=== PATIENT | female | born 1965 | race Caucasian/White ===

== ENCOUNTER → 2016-09-27 | Outpatient (CLI) | payer OTHER ==
--- NOTE | 2016-09-28 09:59 | MR ---
EXAMINATION TYPE: MR brain wo/w con DATE OF EXAM: 09/27/2016 2:35 PM COMPARISON: NONE HISTORY: Headaches and generalized muscular weakness- Multihance 10ml TECHNIQUE: Multiplanar, multisequence images of the brain and brainstem is performed without and with IV contras t, utilizing 10 mL intravenous MultiHance . FINDINGS: Diffusion weighted images demonstrate no evidence of a recent infarct or other diffusion ab normality. There is no extra-axial fluid collection present. The ventricular system and cisternal s paces are normal in size and appearance. The brain volume is age appropriate. Few foci of left hemis pheric and right frontal T2/IR hyperintensity without restricted diffusion or enhancement are seen wi thin the subcortical white matter. Midline structures demonstrate normal morphology. The craniocervical junction appears within normal limits. Post contrast images demonstrate no abnormal enhancement. The dural venous sinuses appear pa tent. Intracranial flow voids are intact. There is circumferential mucosal thickening of the right ma xillary sinus. The remaining visualized sinuses are clear and the globes are intact. IMPRESSION: 1. No evidence of acute territorial infarct, intracranial hemorrhage mass effect, or midline shift. 2. Few nonspecific T2 hyperintense subcortical foci, likely on the basis of chronic microangiopathy, however some are located within the frontal lobes and could relate to migraines and a patient with a given history of headaches. There is no evidence of restricted diffusion are enhancement of these foc i. 2. Circumferential right maxillary paranasal sinus disease.
--- NOTE | 2016-09-28 10:03 | MR ---
EXAMINATION TYPE: MR angio head wo con DATE OF EXAM: 09/27/2016 2:27 PM COMPARISON: NONE HISTORY: Headaches CONTRAST: None TECHNIQUE: Multiplanar multiecho imaging on a 3.0 Nai magnet is performed through the [place]. 3-D [id number] imaging is performed. Source images are reviewed on the computer in the axi al plane. Reconstructed images rotating on the computer are reviewed. FINDINGS: The internal carotid arteries bifurcate normally into A1 and M1 segments. The A2 segments are normal. Middle cerebral artery branches are normal. Anterior communicating artery is patent. This may be small. The right posterior communicating artery is patent. The left posterior communicating artery is absent. Vertebrobasilar arteries within the [id number]-[id number] are normal. Posterior cerebral vasculature is norm al. No suspicious aneurysm or aneurysmal dilatation is evident. No obstructions are identified. No significant flow-limiting stenosis is evident. IMPRESSIONS: 1. NORMAL MRA [facility] [place].
== END | disposition home or self-care (01) ==
LOC: RADMRIMAIN 13:21
PROVIDERS: ATTEND Psychiatry & Neurology Neurology
DX: R51 Headache (principal); R20.0 Anesthesia of skin; M62.81 Muscle weakness (generalized)
CPT/HCPCS: 70544; 70553; A9577

== ENCOUNTER 2017-07-04 13:58 | Emergency (ER) | payer OTHER ==
--- NOTE | 2017-07-04 15:03 | ED ---
Dizziness HPI - General Chief Complaint: Dizziness Stated Complaint: Double Vision Time Seen by Provider: 07/04/17 14:10 Source: patient, family, RN notes reviewed, old records reviewed Mode of arrival: EMS Limitations: no limitations - History of Present Illness Initial Comments: 52 female with history of CAD, and epilepsy presents with chief complaint of lightheadedness and double vision. Patient states that around noon today she felt she was going to pass out. Denies any vertigo symptoms. Patient states at that time she had some vertical double vision. She states she has had lightheadedness and double vision orany. Patient's primary care physician and her neurologist are aware of these symptoms. Patient had recent hospitalization approximately 2 months ago, was found to have CAD and received a RCA stent. Patient has been taking metoprolol, pravastatin, and Plavix. Denies missing any doses. Patient is also on carbamazepine and Ativan for her epilepsy. Patient has a absent seizures. Patient denies chest pain or shortness of breath. Denies abdominal pain. Denies fever chills. States her normal vision and lightheadedness have resolved. - Related Data Home Medications Medication Instructions Recorded Confirmed Atorvastatin [Lipitor] 40 mg PO HS 07/04/17 07/04/17 Bacavir/Lamivudine/Zido 1 tab PO BID 07/04/17 07/04/17 Clopidogrel [Plavix] 75 mg PO DAILY@1400 07/04/17 07/04/17 LORazepam [Ativan] 1 mg PO QID 07/04/17 07/04/17 Metoprolol Tartrate [Lopressor] 25 mg PO DAILY 07/04/17 07/04/17 Sertraline [Zoloft] 25 mg PO DAILY 07/04/17 07/04/17 carBAMazepine [TEGretol] 200 mg PO 5XD 07/04/17 07/04/17 lamoTRIgine [LaMICtal] 25 mg PO DAILY 07/04/17 07/04/17 lamoTRIgine [LaMICtal] 100 mg PO BID 07/04/17 07/04/17 Allergies Allergy/AdvReac Type Severity Reaction Status Date / Time phenobarbital AdvReac "ZOMBIE" Verified 07/04/17 15:29 PER FAMILY Review of Systems ROS Statement: Those systems with pertinent positive or pertinent negative responses have been documented in the HPI. ROS Other: All systems not noted in ROS Statement are negative. Past Medical History Additional Past Medical History / Comment(s): pt poor historian: hiv+, hep C, acities History of Any Multi-Drug Resistant Organisms: None Reported Additional Past Surgical History / Comment(s): pt poor historian Past Psychological History: No Psychological Hx Reported Smoking Status: Never smoker Past Alcohol Use History: None Reported Past Drug Use History: None Reported General Exam Limitations: no limitations General appearance: alert, in no apparent distress Head exam: Present: atraumatic, normocephalic Eye exam: Present: normal appearance, PERRL, EOMI. Absent: scleral icterus, nystagmus ENT exam: Present: normal exam Neck exam: Present: normal inspection. Absent: tenderness, meningismus Respiratory exam: Present: normal lung sounds bilaterally. Absent: respiratory distress Cardiovascular Exam: Present: regular rate, normal rhythm GI/Abdominal exam: Present: soft. Absent: distended Extremities exam: Present: normal inspection, full ROM, normal capillary refill. Absent: pedal edema, calf tenderness Neurological exam: Present: alert, oriented X3, CN II-XII intact. Absent: motor sensory deficit Psychiatric exam: Present: normal affect, normal mood Skin exam: Present: warm, dry, intact. Absent: cyanosis, diaphoretic Course Vital Signs 07/04/17 07/04/17 14:06 15:00 Temperature 96.8 F L Pulse Rate 75 72 Respiratory 18 20 Rate Blood Pressure 188/92 140/86 O2 Sat by Pulse 100 97 Oximetry EKG Findings - EKG Comments: EKG Findings:: EKG shows normal sinus rhythm, left atrial enlargement, ventricular rate 78, IN of 150, QRS duration 88, QTC 467, no signs of ischemia Medical Decision Making - Medical Decision Making 52-year-old female presenting with near syncope and double vision. The symptoms have been ongoing for months to years. No chest pain shortness of breath. EKG is nonischemic. Chest x-ray shows no acute intrathoracic processes. CT of the brain does show advanced atrophy according to the patient' s age, no intracranial hemorrhage, no mass effect. Laboratory studies reveal normal white blood cell count 4.3, stable hemoglobin 14.2 although she has significant macrocytosis. Sodium 135. I otherwise normal. Patient is encouraged to take a B complex for her macrocytic anemia. She is not currently driving. 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 Diagnosis: Near-syncope, double vision-resolved. Macrocytic anemia - Lab Data Result diagrams: 07/04/17 14:05 07/04/17 14:05 Lab Results 07/04/17 07/04/17 07/04/17 Range/Units 14:05 14:05 14:05 WBC 4.3 (3.8-10.6) k/uL RBC 3.23 L (3.80-5.40) m/uL Hgb 13.2 (11.4-16.0) gm/dL Hct 41.3 (34.0-46.0) % MCV 127.6 H (80.0-100.0) fL MCH 40.7 H (25.0-35.0) pg MCHC 31.9 (31.0-37.0) g/dL RDW 13.3 (11.5-15.5) % Plt Count 284 (150-450) k/uL Neutrophils % (Manual) 27 % Lymphocytes % (Manual) 64 % Monocytes % (Manual) 6 % Eosinophils % (Manual) 3 % Neutrophils # (Manual) 1.16 L (1.3-7.7) k/uL Lymphocytes # (Manual) 2.75 (1.0-4.8) k/uL Monocytes # (Manual) 0.26 (0-1.0) k/uL Eosinophils # (Manual) 0.13 (0-0.7) k/uL Nucleated RBCs 0 (0-0) /100 WBC Manual Slide Review Performed Reactive Lymphocytes Present Macrocytosis Marked Sodium 135 L (137-145) mmol/L Potassium 4.2 (3.5-5.1) mmol/L Chloride 102 (98-107) mmol/L Carbon Dioxide 23 (22-30) mmol/L Anion Gap 10 mmol/L BUN 12 (7-17) mg/dL Creatinine 0.60 (0.52-1.04) mg/dL Est GFR (MDRD) Af Amer >60 (>60 ml/min/1.73 sqM) Est GFR (MDRD) Non-Af >60 (>60 ml/min/1.73 sqM) Glucose 89 (74-99) mg/dL Plasma Lactic Acid Ari (0.7-2.0) mmol/L Calcium 9.4 (8.4-10.2) mg/dL Total Bilirubin 0.2 (0.2-1.3) mg/dL AST 33 (14-36) U/L ALT 37 (9-52) U/L Alkaline Phosphatase 106 (38-126) U/L Total Protein 6.8 (6.3-8.2) g/dL Albumin 4.4 (3.5-5.0) g/dL Urine Color Light Yellow Urine Appearance Clear (Clear) Urine pH 6.0 (5.0-8.0) Ur Specific [place] 1.004 (1.001-1.035) Urine Protein Negative (Negative) Urine Glucose (UA) Negative (Negative) Urine Ketones Negative (Negative) Urine Blood Negative (Negative) Urine Nitrite Negative (Negative) Urine Bilirubin Negative (Negative) Urine Urobilinogen <2.0 (<2.0) mg/dL Ur Leukocyte Esterase Negative (Negative) Urine Opiates Screen Not Detected (NotDetected) Ur Oxycodone Screen Not Detected (NotDetected) Urine Methadone Screen Not Detected (NotDetected) Ur Propoxyphene Screen Not Detected (NotDetected) Ur Barbiturates Screen Not Detected (NotDetected) U Tricyclic Antidepress Not Detected (NotDetected) Ur Phencyclidine Scrn Not Detected (NotDetected) Ur Amphetamines Screen Not Detected (NotDetected) U Methamphetamines Scrn Not Detected (NotDetected) U Benzodiazepines Scrn Detected H (NotDetected) Urine Cocaine Screen Not Detected (NotDetected) U Marijuana (THC) Screen Not Detected (NotDetected) 07/04/17 Range/Units 14:05 WBC (3.8-10.6) k/uL RBC (3.80-5.40) m/uL Hgb (11.4-16.0) gm/dL Hct (34.0-46.0) % MCV (80.0-100.0) fL MCH (25.0-35.0) pg MCHC (31.0-37.0) g/dL RDW (11.5-15.5) % Plt Count (150-450) k/uL Neutrophils % (Manual) % Lymphocytes % (Manual) % Monocytes % (Manual) % Eosinophils % (Manual) % Neutrophils # (Manual) (1.3-7.7) k/uL Lymphocytes # (Manual) (1.0-4.8) k/uL Monocytes # (Manual) (0-1.0) k/uL Eosinophils # (Manual) (0-0.7) k/uL Nucleated RBCs (0-0) /100 WBC Manual Slide Review Reactive Lymphocytes Macrocytosis Sodium (137-145) mmol/L Potassium (3.5-5.1) mmol/L Chloride (98-107) mmol/L Carbon Dioxide (22-30) mmol/L Anion Gap mmol/L BUN (7-17) mg/dL Creatinine (0.52-1.04) mg/dL Est GFR (MDRD) Af Amer (>60 ml/min/1.73 sqM) Est GFR (MDRD) Non-Af (>60 ml/min/1.73 sqM) Glucose (74-99) mg/dL Plasma Lactic Acid Ari 1.1 (0.7-2.0) mmol/L Calcium (8.4-10.2) mg/dL Total Bilirubin (0.2-1.3) mg/dL AST (14-36) U/L ALT (9-52) U/L Alkaline Phosphatase (38-126) U/L Total Protein (6.3-8.2) g/dL Albumin (3.5-5.0) g/dL Urine Color Urine Appearance (Clear) Urine pH (5.0-8.0) Ur Specific [place] (1.001-1.035) Urine Protein (Negative) Urine Glucose (UA) (Negative) Urine Ketones (Negative) Urine Blood (Negative) Urine Nitrite (Negative) Urine Bilirubin (Negative) Urine Urobilinogen (<2.0) mg/dL Ur Leukocyte Esterase (Negative) Urine Opiates Screen (NotDetected) Ur Oxycodone Screen (NotDetected) Urine Methadone Screen (NotDetected) Ur Propoxyphene Screen (NotDetected) Ur Barbiturates Screen (NotDetected) U Tricyclic Antidepress (NotDetected) Ur Phencyclidine Scrn (NotDetected) Ur Amphetamines Screen (NotDetected) U Methamphetamines Scrn (NotDetected) U Benzodiazepines Scrn (NotDetected) Urine Cocaine Screen (NotDetected) U Marijuana (THC) Screen (NotDetected) Disposition Clinical Impression: Near syncope, Macrocytic anemia Disposition: HOME SELF-CARE Condition: Good Instructions: Near Syncope (ED) Referrals: Grant Frederick MD [Primary Care Provider] - 1-2 days Antelmo Mulligan MD [STAFF PHYSICIAN] - 1-2 days Antonia Roberts MD [STAFF PHYSICIAN] - 1-2 days Time of Disposition: 17:05
[2017-07-04 15:16] LABS: Appearance,Urine Clear (Clear); Bilirubin,Urine Negative (Negative); Glucose,Urine (UA) Negative (Negative); Ketones,Urine Negative (Negative); Leukocyte Esterase,Urine Negative (Negative); Nitrite,Urine Negative (Negative); Protein,Urine Negative (Negative); Specific Gravity,Urine 1.004 (1.001-1.035); UA Billing (MACRO vs. MICRO) CHEM; Urobilinogen,Urine <2.0 mg/dL (<2.0)
[2017-07-04 15:17] LABS: CH 40.6; HCT 41.3 % (34.0-46.0); HDW 2.08; HGB 13.2 gm/dL (11.4-16.0); MCH 40.7 pg (25.0-35.0); MCHC 31.9 g/dL (31.0-37.0); MCV 127.6 fL (80.0-100.0); Macrocytosis Marked; Mean Platelet Volume 7.3; RBC 3.23 m/uL (3.80-5.40); RDW 13.3 % (11.5-15.5); WBC 4.3 k/uL (3.8-10.6); WBC (Perox) 4.23
--- NOTE | 2017-07-04 15:33 | CT ---
EXAMINATION TYPE: CT brain wo con DATE OF EXAM: 07/04/2017 COMPARISON: NONE HISTORY: Patient complains of dizziness, double vision, and near syncope after taking her daily medic ations. CT DLP: 619.7 mGycm. Automated Exposure Control for Dose Reduction was Utilized. TECHNIQUE: CT scan of the head is performed without contrast. FINDINGS: There is no acute intracranial hemorrhage, mass effect, or midline shift identified. The ventricles and sulci are within normal limits in size. The globes are intact and the visualized sin uses are clear. Waelder artifact from dense calvarium somewhat limits evaluation of the ro and brains tem. Symmetric prominence of the peripheral sulci and ventricular system relate to age-related atroph y, slightly prominent for the patient's age. IMPRESSION: 1. No acute intracranial hemorrhage, mass effect, or midline shift is seen. 2. Cerebral atrophy that is slightly prominent for the patient's age.
[2017-07-04 15:37] LABS: Add Differential Manual Differential
--- NOTE | 2017-07-04 15:38 | XR ---
EXAMINATION TYPE: XR chest 2V DATE OF EXAM: 07/04/2017 COMPARISON: NONE HISTORY: Syncope TECHNIQUE: Frontal and lateral views of the chest are obtained. FINDINGS: There is no focal air space opacity, pleural effusion, or pneumothorax seen. Pulmonary hyp erinflation may relate to degree of inspiration or underlying COPD as there is no distinct flattening the diaphragms on the lateral image or biapical lucency. The cardiac silhouette size is within norm al limits. The osseous structures are intact. IMPRESSION: No acute cardiopulmonary process.
[2017-07-04 15:42] LABS: Manual Review Performed; Nucleated Red Blood Cells 0 /100 WBC (0-0); Reactive Lymphocytes Present; Total Cells Counted 100
[2017-07-04 15:50] LABS: ALT 37 U/L (9-52); AST 33 U/L (14-36); Alkaline Phosphatase 106 U/L (38-126); Anion Gap 10 mmol/L; Blood Urea Nitrogen 12 mg/dL (7-17); Calcium 9.4 mg/dL (8.4-10.2); Carbon Dioxide 23 mmol/L (22-30); Chloride 102 mmol/L (98-107); Glucose 89 mg/dL (74-99); Non-African American GFR(MDRD) >60 (>60 ml/min/1.73 sqM); Potassium 4.2 mmol/L (3.5-5.1); Sodium 135 mmol/L (137-145); Total Bilirubin 0.2 mg/dL (0.2-1.3); Total Protein 6.8 g/dL (6.3-8.2)
[2017-07-04 17:19] VITALS: BP 144/88; PULSE 78; RESP 18; TEMP 98.1
== END 2017-07-04 17:19 | disposition home or self-care (01) ==
LOC: EC 13:58
DX: R55 Syncope and collapse (principal); D53.9 Nutritional anemia, unspecified; I25.10 Atherosclerotic heart disease of native coronary artery without angina pectoris; Z21 Asymptomatic human immunodeficiency virus [HIV] infection status; Z86.69 Personal history of other diseases of the nervous system and sense organs; Z79.02 Long term (current) use of antithrombotics/antiplatelets; Z79.899 Other long term (current) drug therapy; Z88.8 Allergy status to other drugs, medicaments and biological substances
CPT/HCPCS: 36415; 70450; 71020; 80053; 80306; 81003; 83605; 85025; 93005; 99285

== ENCOUNTER 2018-08-22 03:30 | Inpatient (IN) | payer OTHER ==
--- NOTE | 2018-08-22 03:33 | ED ---
General Adult HPI - General Stated complaint: poss allergic reaction Time Seen by Provider: 08/22/18 03:32 - History of Present Illness Initial comments: Luiza is a 53-year-old female with a history of hep C and HIV who presents to the emergency department today for evaluation of agitation. reports patient was in her usual state of health until yesterday, he reports that throughout the day she has been agitated and not acting like herself. This evening he couldn't get her to take her home medications which she is usually very vigilant about. He reports that she continued to say on an atypical things like that she believes she had a heart attack that her ears and mouth were hurting, that she felt something happen when she was going to the bathroom that told her that she had had a heart attack. could not console the patient so he contacted EMS to bring the patient to the hospital. reports that the patient is absolutely compliant with all of her medications. She has an undetectable viral load with her HIV. She has no complications of her hepatitis that he is aware of. He reports that the only other abnormality he noticed throughout the day as she was drinking water and seemed to have insatiable thirst. Upon arrival patient is acutely agitated, she is stating that she knows she has had a heart attack. She reports that she can't move because she is . She denies any pain but offers no meaningful history. - Related Data Home Medications Medication Instructions Recorded Confirmed Atorvastatin [Lipitor] 40 mg PO HS 07/04/17 07/04/17 Bacavir/Lamivudine/Zido 1 tab PO BID 07/04/17 07/04/17 Clopidogrel [Plavix] 75 mg PO DAILY@1400 07/04/17 07/04/17 LORazepam [Ativan] 1 mg PO QID 07/04/17 07/04/17 Metoprolol Tartrate [Lopressor] 25 mg PO DAILY 07/04/17 07/04/17 Sertraline [Zoloft] 25 mg PO DAILY 07/04/17 07/04/17 carBAMazepine [TEGretol] 200 mg PO 5XD 07/04/17 07/04/17 lamoTRIgine [LaMICtal] 25 mg PO DAILY 07/04/17 07/04/17 lamoTRIgine [LaMICtal] 100 mg PO BID 07/04/17 07/04/17 Allergies Allergy/AdvReac Type Severity Reaction Status Date / Time phenobarbital AdvReac "ZOMBIE" Verified 08/22/18 03:43 PER FAMILY Review of Systems ROS Statement: Those systems with pertinent positive or pertinent negative responses have been documented in the HPI. ROS Other: All systems not noted in ROS Statement are negative. Limitations: ROS unobtainable due to patients medical condition (Altered mental status) Past Medical History Additional Past Medical History / Comment(s): pt poor historian: hiv+, hep C, acities History of Any Multi-Drug Resistant Organisms: None Reported Additional Past Surgical History / Comment(s): pt poor historian Past Psychological History: No Psychological Hx Reported Smoking Status: Never smoker Past Alcohol Use History: None Reported Past Drug Use History: None Reported General Exam - General Exam Comments Initial Comments: GENERAL: Patient appears much older than stated age HENT: Normocephalic, Atraumatic. Neck is soft and supple. No significant lymphadenopathy is noted. Oropharynx is clear. Moist mucous membranes. Neck has full range of motion without eliciting any pain. TMs normal bilaterally external ear and ear canals normal bilaterally EYES: The sclera were anicteric and conjunctiva were pink and moist. Extraocular movements were intact and pupils were equal round and reactive to light. Eyelids were unremarkable. PULMONARY: Unlabored respirations. Good breath sounds bilaterally. No audible rales rhonchi or wheezing was noted. CARDIOVASCULAR: There is a regular rate and rhythm without any murmurs gallops or rubs. ABDOMEN: Soft and nontender with normal bowel sounds. SKIN: Skin is clear with no lesions or rashes and otherwise unremarkable. NEUROLOGIC: Patient is alert and oriented to self only Patient is able to identify that she is in a hospital MUSCULOSKELETAL: Normal extremities with adequate strength and full range of motion. No lower extremity swelling or edema. No calf tenderness. LYMPHATICS: No significant lymphadenopathy is noted PSYCHIATRIC: Very odd and paranoid Limitations: no limitations Course Vital Signs 08/22/18 08/22/18 08/22/18 03:35 05:40 06:46 Temperature 98.1 F Pulse Rate 82 77 98 Respiratory 20 20 16 Rate Blood Pressure 186/112 134/75 146/87 O2 Sat by Pulse 99 99 100 Oximetry - Reevaluation(s) Reevaluation #1: She was reevaluated. She was resting comfortably however when she wakes she continues to complain that she's not feeling well and complains that she possibly has to urinate. I updated the patient and on elevated troponin and plan for heparinization and cardiology evaluation. Does report the patient had a stent placed approximately one year ago in a clean cath afterwards. 08/22/18 06:25 EKG Findings - EKG Comments: EKG Findings:: KG obtained at 3:46 AM, rate is 73 rhythm is sinus there is normal axis normal intervals no acute ST elevations or depressions no evidence of acute ischemia or infarction. Repeat EKG obtained at 6:25 AM, rate is 95 rhythm is sinus there is a first-degree AV block with a VA of 216. QRS 82, QTc is 475. There are no acute ST elevations or evidence of acute infarction. Medical Decision Making - Medical Decision Making Patient was seen and evaluated upon arrival patient with a history of hep C and HIV which is well-controlled on oral meds with an undetectable viral load Patient presenting acutely agitated Labs and imaging were ordered was witnessed to have seizure-like activity with an twitching movement of her face as well as repetitive motion of her right arm. Patient was incontinent of urine at this time. IV Ativan was ordered and given. Patient was much calmer after Ativan, we are able to transported to computed tomography scan, CT of the head was negative for acute pathology Unfortunately a lot of her labs clotted and had to be redrawn resulting in somewhat delayed CBC unremarkable CMP resulted with mild hyponatremia, hypokalemia, normal lactic acid, mildly elevated CPK Troponin was elevated at 1.6 5 repeat EKG was obtained which again appears nonischemic Patient care was discussed with Dr. guthrie, patient will be admitted on heparin for an STEMI with a consult to cardiology as well as consult to neurology Patient care was discussed with Dr. Juares, cardiology division supervisor who is aware of the elevated trop and agrees with Heparin and admission - Lab Data Result diagrams: 08/22/18 03:55 08/22/18 05:15 Lab Results 08/22/18 08/22/18 08/22/18 Range/Units 03:55 03:55 03:55 WBC 8.6 (3.8-10.6) k/uL RBC 3.04 L (3.80-5.40) m/uL Hgb 12.4 (11.4-16.0) gm/dL Hct 36.4 (34.0-46.0) % MCV 119.8 H (80.0-100.0) fL MCH 40.8 H (25.0-35.0) pg MCHC 34.0 (31.0-37.0) g/dL RDW 12.7 (11.5-15.5) % Plt Count 229 (150-450) k/uL Neutrophils % 70 % Lymphocytes % 20 % Monocytes % 7 % Eosinophils % 1 % Basophils % 0 % Neutrophils # 6.0 (1.3-7.7) k/uL Lymphocytes # 1.8 (1.0-4.8) k/uL Monocytes # 0.6 (0-1.0) k/uL Eosinophils # 0.1 (0-0.7) k/uL Basophils # 0.0 (0-0.2) k/uL Manual Slide Review Performed Macrocytosis Marked PT (9.0-12.0) sec INR (<1.2) APTT (22.0-30.0) sec Sodium (137-145) mmol/L Potassium (3.5-5.1) mmol/L Chloride (98-107) mmol/L Carbon Dioxide (22-30) mmol/L Anion Gap mmol/L BUN (7-17) mg/dL Creatinine (0.52-1.04) mg/dL Est GFR (CKD-EPI)AfAm (>60 ml/min/1.73 sqM) Est GFR (CKD-EPI)NonAf (>60 ml/min/1.73 sqM) Glucose (74-99) mg/dL Plasma Lactic Acid Ari 1.3 (0.7-2.0) mmol/L Calcium (8.4-10.2) mg/dL Total Bilirubin (0.2-1.3) mg/dL AST (14-36) U/L ALT (9-52) U/L Alkaline Phosphatase (38-126) U/L Total Creatine Kinase (30-135) U/L CK-MB (CK-2) (0.0-2.4) ng/mL CK-MB (CK-2) Rel Index Troponin I (0.000-0.034) ng/mL Total Protein (6.3-8.2) g/dL Albumin (3.5-5.0) g/dL Urine Color Urine Appearance (Clear) Urine pH (5.0-8.0) Ur Specific [place] (1.001-1.035) Urine Protein (Negative) Urine Glucose (UA) (Negative) Urine Ketones (Negative) Urine Blood (Negative) Urine Nitrite (Negative) Urine Bilirubin (Negative) Urine Urobilinogen (<2.0) mg/dL Ur Leukocyte Esterase (Negative) Influenza Type A RNA Not Detected (Not Detectd) Influenza Type B (PCR) Not Detected (Not Detectd) 08/22/18 08/22/18 08/22/18 Range/Units 04:15 05:10 05:10 WBC (3.8-10.6) k/uL RBC (3.80-5.40) m/uL Hgb (11.4-16.0) gm/dL Hct (34.0-46.0) % MCV (80.0-100.0) fL MCH (25.0-35.0) pg MCHC (31.0-37.0) g/dL RDW (11.5-15.5) % Plt Count (150-450) k/uL Neutrophils % % Lymphocytes % % Monocytes % % Eosinophils % % Basophils % % Neutrophils # (1.3-7.7) k/uL Lymphocytes # (1.0-4.8) k/uL Monocytes # (0-1.0) k/uL Eosinophils # (0-0.7) k/uL Basophils # (0-0.2) k/uL Manual Slide Review Macrocytosis PT 10.9 (9.0-12.0) sec INR 1.0 (<1.2) APTT 23.7 (22.0-30.0) sec Sodium (137-145) mmol/L Potassium (3.5-5.1) mmol/L Chloride (98-107) mmol/L Carbon Dioxide (22-30) mmol/L Anion Gap mmol/L BUN (7-17) mg/dL Creatinine (0.52-1.04) mg/dL Est GFR (CKD-EPI)AfAm (>60 ml/min/1.73 sqM) Est GFR (CKD-EPI)NonAf (>60 ml/min/1.73 sqM) Glucose (74-99) mg/dL Plasma Lactic Acid Ari (0.7-2.0) mmol/L Calcium (8.4-10.2) mg/dL Total Bilirubin (0.2-1.3) mg/dL AST (14-36) U/L ALT (9-52) U/L Alkaline Phosphatase (38-126) U/L Total Creatine Kinase 212 H (30-135) U/L CK-MB (CK-2) 4.8 H (0.0-2.4) ng/mL CK-MB (CK-2) Rel Index 2.3 Troponin I 1.650 H* (0.000-0.034) ng/mL Total Protein (6.3-8.2) g/dL Albumin (3.5-5.0) g/dL Urine Color Colorless Urine Appearance Clear (Clear) Urine pH 7.5 (5.0-8.0) Ur Specific [place] 1.001 (1.001-1.035) Urine Protein Negative (Negative) Urine Glucose (UA) Negative (Negative) Urine Ketones Negative (Negative) Urine Blood Negative (Negative) Urine Nitrite Negative (Negative) Urine Bilirubin Negative (Negative) Urine Urobilinogen <2.0 (<2.0) mg/dL Ur Leukocyte Esterase Negative (Negative) Influenza Type A RNA (Not Detectd) Influenza Type B (PCR) (Not Detectd) 08/22/18 Range/Units 05:15 WBC (3.8-10.6) k/uL RBC (3.80-5.40) m/uL Hgb (11.4-16.0) gm/dL Hct (34.0-46.0) % MCV (80.0-100.0) fL MCH (25.0-35.0) pg MCHC (31.0-37.0) g/dL RDW (11.5-15.5) % Plt Count (150-450) k/uL Neutrophils % % Lymphocytes % % Monocytes % % Eosinophils % % Basophils % % Neutrophils # (1.3-7.7) k/uL Lymphocytes # (1.0-4.8) k/uL Monocytes # (0-1.0) k/uL Eosinophils # (0-0.7) k/uL Basophils # (0-0.2) k/uL Manual Slide Review Macrocytosis PT (9.0-12.0) sec INR (<1.2) APTT (22.0-30.0) sec Sodium 128 L (137-145) mmol/L Potassium 3.4 L (3.5-5.1) mmol/L Chloride 98 (98-107) mmol/L Carbon Dioxide 21 L (22-30) mmol/L Anion Gap 9 mmol/L BUN 8 (7-17) mg/dL Creatinine 0.47 L (0.52-1.04) mg/dL Est GFR (CKD-EPI)AfAm >90 (>60 ml/min/1.73 sqM) Est GFR (CKD-EPI)NonAf >90 (>60 ml/min/1.73 sqM) Glucose 101 H (74-99) mg/dL Plasma Lactic Acid Ari (0.7-2.0) mmol/L Calcium 8.6 (8.4-10.2) mg/dL Total Bilirubin 0.6 (0.2-1.3) mg/dL AST 41 H (14-36) U/L ALT 37 (9-52) U/L Alkaline Phosphatase 58 (38-126) U/L Total Creatine Kinase (30-135) U/L CK-MB (CK-2) (0.0-2.4) ng/mL CK-MB (CK-2) Rel Index Troponin I (0.000-0.034) ng/mL Total Protein 5.9 L (6.3-8.2) g/dL Albumin 3.6 (3.5-5.0) g/dL Urine Color Urine Appearance (Clear) Urine pH (5.0-8.0) Ur Specific [place] (1.001-1.035) Urine Protein (Negative) Urine Glucose (UA) (Negative) Urine Ketones (Negative) Urine Blood (Negative) Urine Nitrite (Negative) Urine Bilirubin (Negative) Urine Urobilinogen (<2.0) mg/dL Ur Leukocyte Esterase (Negative) Influenza Type A RNA (Not Detectd) Influenza Type B (PCR) (Not Detectd) Critical Care Time Critical Care Time: Yes Total Critical Care Time: 35 Critical Care Time: Critical Care Critical care time was exclusive of separately billable procedures and treating other patients and teaching time. Critical care was necessary to treat or prevent imminent or life-threatening deterioration. Critical care was time spent personally by me on the following activities: development of treatment plan with patient or surrogate, discussions with consultants, discussions with primary provider, evaluation of patient's response to treatment, examination of patient, obtaining history from patient or surrogate, ordering and performing treatments and interventions, ordering and review of laboratory studies, ordering and review of radiographic studies, pulse oximetry, re-evaluation of patient's condition and review of old charts. Disposition Clinical Impression: NSTEMI (non-ST elevated myocardial infarction), Seizure, HIV disease, Hepatitis C, Agitation Disposition: ADMITTED IP TO THIS [facility] Condition: Serious Is patient prescribed a controlled substance at d/c from ED?: No
[2018-08-22] MEDS ORDERED: LORazepam 2 MG/ML INJ IV STA ×2 (04:14→04:22)
[2018-08-22] MEDS: SODIUM CHLORIDE 0.9% 500 ML 500 ML IV SCH ×2 (04:16→04:17)
[2018-08-22 04:26] LABS: Appearance,Urine Clear (Clear); Bilirubin,Urine Negative (Negative); Blood,Urine Negative (Negative); Color,Urine Colorless; Glucose,Urine (UA) Negative (Negative); Ketones,Urine Negative (Negative); Leukocyte Esterase,Urine Negative (Negative); Nitrite,Urine Negative (Negative); PH, Urine 7.5 (5.0-8.0); Protein,Urine Negative (Negative); Specific Gravity,Urine 1.001 (1.001-1.035); Urobilinogen,Urine <2.0 mg/dL (<2.0)
[2018-08-22 04:28] LABS: Basophils % (A) 0 %; Eosinophils # (A) 0.1 k/uL (0-0.7); Eosinophils % (A) 1 %; HCT 36.4 % (34.0-46.0); HGB 12.4 gm/dL (11.4-16.0); Lymphocytes # (A) 1.8 k/uL (1.0-4.8); Lymphocytes % (A) 20 %; MCH 40.8 pg (25.0-35.0); MCV 119.8 fL (80.0-100.0); Macrocytosis Marked; Mean Platelet Volume 6.9; Monocytes # (A) 0.6 k/uL (0-1.0); Monocytes % (A) 7 %; Neutrophils % (A) 70 %; Platelet Count 229 k/uL (150-450); RBC 3.04 m/uL (3.80-5.40); RDW 12.7 % (11.5-15.5); WBC 8.6 k/uL (3.8-10.6)
--- NOTE | 2018-08-22 05:03 | CT ---
EXAM: CT Head Without Intravenous Contrast CLINICAL HISTORY: Altered, hx HIV. TECHNIQUE: Axial computed tomography images of the head/brain without intravenous contrast. Coronal and sagittal reformations provided. CTDI is 49.3 mGy and DLP is 1081.4 mGy-cm. This CT exam was performed using one or more of the following dose reduction techniques: automated exposure control, adjustment of the mA and/or kV according to patient size, and/or use of iterative reconstruction technique. COMPARISON: No relevant prior studies available. FINDINGS: Brain: No acute intracranial hemorrhage. No evidence of acute infarct. No significant white matter disease. No edema. No mass effect or midline shift. Stable mild atrophy/volume loss. Ventricles: Unremarkable. No ventriculomegaly. Bones/joints: Unremarkable. No acute fracture. Soft tissues: Unremarkable. Sinuses: Unremarkable as visualized. No acute sinusitis. Mastoid air cells: Unremarkable as visualized. No mastoid effusion. IMPRESSION: 1. No evidence of acute intracranial abnormality. 2. Stable mild cerebral volume loss.
[2018-08-22 05:51] LABS: ALT 37 U/L (9-52); AST 41 U/L (14-36); Albumin 3.6 g/dL (3.5-5.0); Alkaline Phosphatase 58 U/L (38-126); Anion Gap 9 mmol/L; Blood Urea Nitrogen 8 mg/dL (7-17); Calcium 8.6 mg/dL (8.4-10.2); Carbon Dioxide 21 mmol/L (22-30); Chloride 98 mmol/L (98-107); Glucose 101 mg/dL (74-99); Potassium 3.4 mmol/L (3.5-5.1); Sodium 128 mmol/L (137-145); Total Bilirubin 0.6 mg/dL (0.2-1.3); Total Protein 5.9 g/dL (6.3-8.2)
[2018-08-22 05:57] LABS: Partial Thromboplastin Time 23.7 sec (22.0-30.0); Prothrombin Time 10.9 sec (9.0-12.0)
[2018-08-22] MEDS ORDERED: NALOXONE 0.4 MG/ML 1 ML VIAL IV PRN (06:06)
[2018-08-22 06:14] LABS: Creatine Kinase MB 4.8 ng/mL (0.0-2.4)
[2018-08-22 06:18] LABS: Troponin I 1.65 ng/mL (0.000-0.034)
[2018-08-22] MEDS ORDERED: HEPARIN SODIUM,PORCINE 5,000 UNIT/ML 1 ML VIAL IV ONE (06:18)
[2018-08-22] MEDS ORDERED: HEPARIN SODIUM,PORCINE 5,000 UNIT/ML 1 ML VIAL IV PRN (06:18)
[2018-08-22] MEDS: HEPARIN SOD,PORK IN 0.45% NACL 25,000 UNIT in 0.45% NACL 1 250ML.BAG IV SCH (06:34)
[2018-08-22] MEDS ORDERED: carBAMazepine 200 MG TAB PO SCH (11:00)
[2018-08-22] MEDS ORDERED: CLOPIDOGREL 75 MG TAB PO SCH (14:00)
[2018-08-22] MEDS: LORazepam 1 MG TAB PO SCH ×4 (14:57→22:29)
[2018-08-22] MEDS: lamoTRIgine 100 MG TAB PO SCH ×2 (14:57→23:04)
[2018-08-22] MEDS: METOPROLOL TARTRATE 25 MG TAB PO SCH (14:58)
[2018-08-22] MEDS: SERTRALINE 25 MG TAB PO SCH (14:58)
[2018-08-22] MEDS: LAMIVUDINE PO SCH (14:58)
[2018-08-22] MEDS: ABACAVIR PO SCH (14:58)
[2018-08-22] MEDS: ZIDOVUDINE PO SCH (14:58)
[2018-08-22 15:18] LABS: Anion Gap 6 mmol/L; Blood Urea Nitrogen 6 mg/dL (7-17); Carbon Dioxide 22 mmol/L (22-30); Chloride 110 mmol/L (98-107); Glucose 106 mg/dL (74-99); Sodium 138 mmol/L (137-145)
[2018-08-22 15:22] LABS: Potassium 3.7 mmol/L (3.5-5.1)
--- NOTE | 2018-08-22 15:35 | P.HPIM ---
History of Present Illness This is a pleasant 53 years old female with past medical history of hypertension , seizure disorder that follow-up with Dr. Mulligan, coronary artery disease and she follow up with Dr. Roberts, hepatitis C, resident of HIV on therapy and follow -up with Dr. Mcconnell, and ascites, hyperlipidemia, depression. She is a patient of Dr. Frederick. She presents mainly because of chest pain and she was thinking she had been heart attack. As per 's morning she was not acting herself and while she was sitting on the toilet she was asking to drink water so he gave her 3 to water of 16 ounces after that she asking for 60 hours [place] which also provided for her and she swallowed all of the however she threw up after a while. Patient may complaint was chest pain which is on the left side she wasn't sure how long she was taken him a daughter thinks she was having it for about 2 weeks. Patient states that it's mild now than a specific associated with numbness in her throat Also patient was complaining of some itching in her urine and she thinks she was having constipation however the states that she having diarrhea about 4-5 days. On admission Vitas looks stable. Labs reviewed showing W WBC of 8.6K, stress of CBC was unremarkable. However her sodium is 128. Potassium 3.4. Creatinine 0.4. Liver enzymes were unremarkable except for mildly elevated AST. With elevated troponin at 1.6. UA and influenza test were negative. EKG showing normal sinus rhythm at 73. With QTC at 473.she has negative CT of the brain for acute abnormality however there is mild cerebral volume loss in the emergency room she got 4 mg of Ativan and she was started on heparin drip Review of Systems CONSTITUTIONAL: No fever, no malaise, no fatigue. HEENT: No recent visual problems or hearing problems. Denied any sore throat. CARDIOVASCULAR: No orthopnea, PND, no palpitations, no syncope. PULMONARY: No shortness of breath, no cough, no hemoptysis. GASTROINTESTINAL: No diarrhea, no nausea, no vomiting, no abdominal pain. Normoactive bowel sounds. NEUROLOGICAL: No headaches, no weakness, no numbness. HEMATOLOGICAL: Denies any bleeding or petechiae. GENITOURINARY: Denies any burning micturition, frequency, or urgency. MUSCULOSKELETAL/RHEUMATOLOGICAL: Denies any joint pain, swelling, or any muscle pain. ENDOCRINE: Denies any polyuria or polydipsia. Past Medical History Past Medical History: Hypertension, Myocardial Infarction ([place]), Seizure Disorder Additional Past Medical History / Comment(s): pt poor historian: hiv+, hep C, acities History of Any Multi-Drug Resistant Organisms: None Reported Past Surgical History: Heart Catheterization Additional Past Surgical History / Comment(s): pt poor historian Past Psychological History: No Psychological Hx Reported Smoking Status: Never smoker Past Alcohol Use History: None Reported Past Drug Use History: None Reported Medications and Allergies Home Medications Medication Instructions Recorded Confirmed Type Atorvastatin [Lipitor] 40 mg PO HS 07/04/17 08/22/18 History Clopidogrel [Plavix] 75 mg PO DAILY@1400 07/04/17 08/22/18 History LORazepam [Ativan] 1 mg PO TID PRN 07/04/17 08/22/18 History Sertraline [Zoloft] 25 mg PO DAILY 07/04/17 08/22/18 History lamoTRIgine [LaMICtal] 50 mg PO BID 07/04/17 08/22/18 History lamoTRIgine [LaMICtal] 100 mg PO BID 07/04/17 08/22/18 History Abacavir/Lamivudine/Zidovudine 1 tab PO BID 08/22/18 08/22/18 History [Lcjufcse-Vnufrvlksj-Uznon Tab] Aspirin [Adult Low Dose Aspirin EC] 81 mg PO DAILY 08/22/18 08/22/18 History Carvedilol [Coreg] 12.5 mg PO BID 08/22/18 08/22/18 History Furosemide [Lasix] 20 mg PO DAILY 08/22/18 08/22/18 History Zonisamide [Zonegran] 100 mg PO DIRECTED 08/22/18 08/22/18 History Allergies Allergy/AdvReac Type Severity Reaction Status Date / Time Penicillins Allergy Unknown Unknown Verified 08/22/18 07:51 phenobarbital AdvReac "ZOMBIE" Verified 08/22/18 07:50 PER FAMILY Physical Exam Vitals: Vital Signs Temp Pulse Resp BP Pulse Ox 08/22/18 12:43 77 16 136/80 97 08/22/18 11:00 96 18 127/62 98 08/22/18 06:46 98 16 146/87 100 08/22/18 05:40 77 20 134/75 99 08/22/18 03:35 98.1 F 82 20 186/112 99 Intake and Output 08/21/18 08/22/18 08/22/18 22:59 06:59 14:59 Other: Weight 54.431 kg GENERAL: The patient is alert and oriented x3, not in any acute distress. Well developed, well nourished. HEENT: Pupils are round and equally reacting to light. EOMI. No scleral icterus. No conjunctival pallor. Normocephalic, atraumatic. No pharyngeal erythema. No thyromegaly. CARDIOVASCULAR: S1 and S2 present. No murmurs, rubs, or gallops. PULMONARY: Chest is clear to auscultation, no wheezing or crackles. ABDOMEN: Soft, nontender, nondistended, normoactive bowel sounds. No palpable organomegaly. MUSCULOSKELETAL: No joint swelling or deformity. EXTREMITIES: No cyanosis, clubbing, or pedal edema. NEUROLOGICAL: Gross neurological examination did not reveal any focal deficits. SKIN: No rashes. Results CBC & Chem 7: 08/22/18 03:55 08/22/18 05:15 Labs: Abnormal Lab Results - Last 24 Hours (Table) 08/22/18 08/22/18 08/22/18 Range/Units 03:55 05:10 05:15 RBC 3.04 L (3.80-5.40) m/uL MCV 119.8 H (80.0-100.0) fL MCH 40.8 H (25.0-35.0) pg Sodium 128 L (137-145) mmol/L Potassium 3.4 L (3.5-5.1) mmol/L Carbon Dioxide 21 L (22-30) mmol/L Creatinine 0.47 L (0.52-1.04) mg/dL Glucose 101 H (74-99) mg/dL AST 41 H (14-36) U/L Total Creatine Kinase 212 H (30-135) U/L CK-MB (CK-2) 4.8 H (0.0-2.4) ng/mL Troponin I 1.650 H* (0.000-0.034) ng/mL Total Protein 5.9 L (6.3-8.2) g/dL Assessment and Plan Assessment: Acute Delirium Non-STEMI, started on heparin drip Hyponatremia, mostly secondary to polydipsia Seizure disorder History of coronary artery disease History of HIV positive History of hepatitis C Essential hypertension Hyperlipidemia Plan: This is a pleasant 53 years old female who presents because of agitation, elevated troponin and hyponatremia. Patient was already started on heparin drip , consult cardiology. Neurologist been consulted by emergency room team. Monitor sodium level. Labs and medication were reviewed.. Continue same treatment. Continue with symptomatic treatment. Resume home medication. Monitor lytes and vitals. DVT and GI prophylaxis. Further recommendations of the clinical course of the patient DVT prophylaxis: heparin GI Prophylaxis: Pepcid PT/OT: Pending Prognosis is guarded
[2018-08-22] MEDS: ZONISAMIDE 100 MG CAP PO SCH (22:28)
[2018-08-22] MEDS: FAMOTIDINE 20 MG/2 ML VIAL IV SCH (22:29)
--- NOTE | 2018-08-22 22:29 | P.CNNES ---
History of Present Illness Consult date: 08/22/18 Reason for Consult: Patient with myocardial infarction and history of seizure disorder. History of Present Illness: This patient is a 53-year-old right-handed white female was brought into the emergency room today for increased confusion and agitation. Patient is being followed in the outpatient neurology clinic for known history of seizure disorder. She also has a history of hepatitis C and HIV. She is followed in the outpatient neurology clinic for her seizure disorder as well on a regular basis. Recently she was being weaned off of her Tegretol and has been started on a new anticonvulsant medication which is Zoisamide 100 mg 3 times a day. In addition to this she has been taking Lamictal 250 mg twice a day. The patient apparently was at home and is having increased confusion and chest pain symptoms. On further questioning the patient states she was having heartburn like sensation in the middle of her chest. She was drinking excessively at home according to her who is at bedside today stating that she was feeling her mouth was dry. estimates that she may drink up to a gallon of water. Patient has no previous history of polydipsia. Due to her confusional state the decided to call EMS. She was brought into the emergency room for further evaluation. She was seen in the ER by Dr. Dailey. She did rule in for a non-ST elevated myocardial infarction. She was started on heparin and is to be evaluated by cardiology. As noted the patient has not had recent seizure at least for the past 2 weeks according to the . She did have some twitching in the ER and was given some Ativan and symptoms completely resolved. We have recommended that her blood levels for Lamictal and Zonegran be done tomorrow. The patient is now resting comfortably in the emergency room. She states she still is getting some chest discomfort. She has a history of having had cardiac stent placement about a year and a half ago according to her . She is to follow-up with cardiology consult tomorrow. Apparently her HIV has been under good control and is been undetectable. There were plans to switch her off of her current HIV medication and according to the this will be done tomorrow. Patient was able to wean off of Tegretol just a week ago and is now continued on 2 anticonvulsant medications for long-term management of her seizures. The patient was sent for a computed tomography scan of the brain in the emergency room which came back with no evidence of acute intracranial abnormality. There was mild cortical atrophy noted. The patient does seem to be very much alert and able to answer all questions appropriately at this time. She did undergo a influenza A and B test which came back negative. As mentioned she is to be switched to a new HIV medication by Dr. Mcconnell. The patient was also found to have a degree of hyponatremia in the emergency room with a serum sodium of 128. This may be related to her history of excessive polydipsia at home. This may also be some degree of delusional hyponatremia due to excessive fluid intake. We will follow along with other specialists that are going to be seeing her tomorrow. She is awaiting bed assignment to the medical floor and was evaluated in the emergency room today. Case was discussed at length with the patient and her in detail. All of their questions were answered. Neurology is now been consulted for further evaluation and recommendations. Review of Systems Constitutional: Denies chills, Denies fever Eyes: denies blurred vision, denies pain Ears, nose, mouth and throat: Denies headache, Denies sore throat Cardiovascular: Denies chest pain, Denies shortness of breath Respiratory: Denies cough Gastrointestinal: Denies abdominal pain, Denies diarrhea, Denies nausea, Denies vomiting Genitourinary: Denies dysuria, Denies hematuria Musculoskeletal: Denies myalgias Integumentary: Denies pruritus, Denies rash Neurological: Reports confusion, Reports convulsions, Reports memory loss (The patient is), Reports seizures, Denies numbness, Denies weakness Psychiatric: Denies anxiety, Denies depression Endocrine: Denies fatigue, Denies weight change Past Medical History Past Medical History: Hypertension, Myocardial Infarction (NM), Seizure Disorder Additional Past Medical History / Comment(s): pt poor historian: hiv+, hep C, acities Last Myocardial Infarction Date:: unknown History of Any Multi-Drug Resistant Organisms: None Reported Past Surgical History: Heart Catheterization Additional Past Surgical History / Comment(s): pt poor historian Past Psychological History: No Psychological Hx Reported Smoking Status: Never smoker Past Alcohol Use History: None Reported Past Drug Use History: None Reported Medications and Allergies Home Medications Medication Instructions Recorded Confirmed Type Atorvastatin [Lipitor] 40 mg PO HS 07/04/17 08/22/18 History Clopidogrel [Plavix] 75 mg PO DAILY@1400 07/04/17 08/22/18 History LORazepam [Ativan] 1 mg PO TID PRN 07/04/17 08/22/18 History Sertraline [Zoloft] 25 mg PO DAILY 07/04/17 08/22/18 History lamoTRIgine [LaMICtal] 50 mg PO BID 07/04/17 08/22/18 History lamoTRIgine [LaMICtal] 100 mg PO BID 07/04/17 08/22/18 History Abacavir/Lamivudine/Zidovudine 1 tab PO BID 08/22/18 08/22/18 History [Sutvjuxm-Xbjxrgsqsn-Rvxmk Tab] Aspirin [Adult Low Dose Aspirin EC] 81 mg PO DAILY 08/22/18 08/22/18 History Carvedilol [Coreg] 12.5 mg PO BID 08/22/18 08/22/18 History Furosemide [Lasix] 20 mg PO DAILY 08/22/18 08/22/18 History Zonisamide [Zonegran] 100 mg PO DIRECTED 08/22/18 08/22/18 History Allergies Allergy/AdvReac Type Severity Reaction Status Date / Time Penicillins Allergy Unknown Unknown Verified 08/22/18 07:51 phenobarbital AdvReac "ZOMBIE" Verified 08/22/18 07:50 PER FAMILY Physical Examination - Vital Signs Vital Signs: Vital Signs Temp Pulse Pulse Resp BP BP Pulse Ox 08/22/18 17:00 67 21 137/77 98 08/22/18 16:00 71 13 144/85 99 08/22/18 15:00 93 20 136/84 98 08/22/18 14:00 84 15 133/75 98 08/22/18 13:00 70 14 131/71 100 08/22/18 12:43 77 16 136/80 97 08/22/18 12:00 79 22 113/71 99 08/22/18 11:00 91 16 127/62 97 08/22/18 09:00 101 H 16 140/86 97 08/22/18 08:00 107 H 7 L 141/83 99 08/22/18 07:00 105 H 12 146/87 08/22/18 06:54 98.4 F 82 16 123/73 98 08/22/18 06:46 98 16 146/87 100 08/22/18 06:00 100 19 141/79 08/22/18 05:40 77 20 134/75 99 08/22/18 03:35 98.1 F 82 20 186/112 99 Intake and Output 08/22/18 08/22/18 08/22/18 06:59 14:59 22:59 Intake Total 73.245 Balance 73.245 Intake: Intake, IV Titration 73.245 Amount Heparin Sod,Pork in 0.45% 73.245 NaCl 25,000 unit In 0.45 % NaCl 1 250ml.bag @ 12 UNITS/KG/HR 6.53 mls/hr IV .Q24H [facility] Rx#: [id number] Other: Weight 54.431 kg Evening and - Constitutional General appearance: average body habitus, cooperative - EENT EENT: PERRL, mucous membranes moist - Respiratory Respiratory: lungs clear, normal breath sounds - Cardiovascular Cardiovascular: regular rate, normal S1, normal S2 Extremities: no peripheral edema bilaterally - Gastrointestinal Gastrointestinal: normoactive bowel sounds - Integumentary Integumentary: normal - Neurologic Cranial nerve examination: PERRL, VFF, V1/V2/V3 grossly intact, face symmetric, intact gag reflex, intact corneal reflex, normal palatal elevation Speech examination: intact Sensorimotor examination: intact Motor examination - right side: 4/5: biceps, triceps, wrist flexion, wrist extension, freight receiver, hip flexors, knee extensors, dorsiflexion, toe extension (EHL) , plantarflexion Motor examination - left side: 4/5: biceps, triceps, wrist flexion, wrist extension, freight receiver, hip flexors, knee extensors, dorsiflexion, toe extension (EHL) , plantarflexion Detailed sensory examination: intact Reflex and gait examination: intact Reflexes: 1+: ankle, bicep, knee, tricep - Musculoskeletal Musculoskeletal: no pain - Psychiatric Psychiatric: mood/affect appropriate, cooperative Results - Laboratory Findings CBC and BMP: 08/22/18 03:55 08/22/18 14:36 Abnormal Lab Findings: Abnormal Labs 08/22/18 08/22/18 08/22/18 03:55 05:10 05:15 RBC 3.04 L MCV 119.8 H MCH 40.8 H APTT Sodium 128 L Potassium 3.4 L Chloride Carbon Dioxide 21 L BUN Creatinine 0.47 L Glucose 101 H AST 41 H Total Creatine Kinase 212 H CK-MB (CK-2) 4.8 H Troponin I 1.650 H* Total Protein 5.9 L 08/22/18 08/22/18 08/22/18 14:36 14:36 14:36 RBC MCV MCH APTT 44.6 H Sodium Potassium Chloride 110 H Carbon Dioxide BUN 6 L Creatinine 0.50 L Glucose 106 H AST Total Creatine Kinase CK-MB (CK-2) Troponin I 0.615 H* Total Protein Assessment and Plan (1) Seizure disorder Current Visit: Yes Status: Acute Code(s): G40.909 - EPILEPSY, UNSP, NOT INTRACTABLE, WITHOUT STATUS EPILEPTICUS SNOMED Code(s): 285701741 (2) Hyponatremia Current Visit: Yes Status: Acute Code(s): E87.1 - HYPO-OSMOLALITY AND HYPONATREMIA SNOMED Code(s): 87566224 (3) HIV disease Current Visit: Yes Status: Acute Code(s): B20 - HUMAN IMMUNODEFICIENCY VIRUS [HIV] DISEASE SNOMED Code(s): 80811348 (4) NSTEMI (non-ST elevated myocardial infarction) Current Visit: Yes Status: Acute Code(s): I21.4 - NON-ST ELEVATION (NSTEMI) MYOCARDIAL INFARCTION SNOMED Code(s): 13234004 Plan: This patient is a 53-year-old female who is been followed in the outpatient neurology clinic for seizure disorder. She has been slowly transitioning to 2 anticonvulsant medications for treatment of her seizure disorder. She is currently taking Lamictal and zonisamide. The patient was brought in due to symptoms of confusion and chest pain. She was found to have evidence of a non- elevated ST segment myocardial infarction. She is been started on heparin protocol and is awaiting cardiology consultation. Patient has underlying history of HIV and hepatitis C. She has been on long-term antiviral therapy. She was being switched off of her anticonvulsant medications and was awaiting to start a new HIV medication which according to her and is to begin tomorrow. The patient was previously taking Tegretol. She stopped all Tegretol medications only a week ago and is now only on dual therapy with the 2 anticonvulsant medications today. We have recommended the patient to have anticonvulsant blood levels drawn. She is to continue on current dosage of both medications. We will obtain a routine EEG for further evaluation of seizure disorder. She also has evidence of hyponatremia etiology still unclear. Her serum sodium level today is 128. She did have some degree of polydipsia and this may have produced a dilutional hyponatremia. Patient is now back to baseline level of function. She is answering all questions appropriately in the emergency room. Patient is awaiting transfer to the medical floor and we will reevaluate her tomorrow. Her computed tomography scan of the brain was completed in the ER and showed no acute abnormalities. We will continue with close seizure precautions for the patient during this admission. Overall prognosis at this time remains guarded. Case was discussed at length with the patient and her at bedside. All of their questions were answered. Her overall prognosis remains guarded. Time with Patient: Greater than 30 (15 mg)
[2018-08-22] MEDS: ATORVASTATIN 40 MG TAB PO SCH (23:04)
[2018-08-23] MEDS: HEPARIN SOD,PORK IN 0.45% NACL 25,000 UNIT in 0.45% NACL 1 250ML.BAG IV SCH (05:29)
[2018-08-23 06:18] LABS: Basophils % (A) 1 %; Eosinophils # (A) 0.1 k/uL (0-0.7); Eosinophils % (A) 2 %; HCT 36.7 % (34.0-46.0); HGB 12.4 gm/dL (11.4-16.0); Lymphocytes # (A) 2.5 k/uL (1.0-4.8); Lymphocytes % (A) 41 %; MCH 41.9 pg (25.0-35.0); MCHC 33.9 g/dL (31.0-37.0); MCV 123.8 fL (80.0-100.0); Mean Platelet Volume 6.6; Monocytes # (A) 0.6 k/uL (0-1.0); Monocytes % (A) 9 %; Neutrophils # (A) 2.7 k/uL (1.3-7.7); Neutrophils % (A) 43 %; Platelet Count 246 k/uL (150-450); RBC 2.97 m/uL (3.80-5.40); WBC 6.1 k/uL (3.8-10.6)
[2018-08-23 06:19] LABS: Macrocytosis Marked
[2018-08-23] MEDS: LAMIVUDINE PO SCH (07:32)
[2018-08-23] MEDS: ABACAVIR PO SCH (07:32)
[2018-08-23] MEDS: ZIDOVUDINE PO SCH (07:32)
[2018-08-23] MEDS ORDERED: ASPIRIN 325 MG TAB PO STA (08:31)
[2018-08-23] MEDS ORDERED: ALPRAZolam 0.5 MG TAB PO PRN (08:31)
[2018-08-23] MEDS ORDERED: NITROGLYCERIN SL TABS 0.4 MG TAB SUBLINGUAL PRN (08:31)
[2018-08-23] MEDS ORDERED: ATORVASTATIN 80 MG TAB PO STA (08:31)
[2018-08-23] MEDS ORDERED: SODIUM CHLORIDE 0.9% 1,000 ML in EMPTY BAG 1 BAG IV ONE (08:31)
[2018-08-23] MEDS ORDERED: ALPRAZolam 0.25 MG TAB PO PRN (08:31)
[2018-08-23] MEDS: LORazepam 1 MG TAB PO SCH ×4 (09:36→22:05)
[2018-08-23] MEDS: ZONISAMIDE 100 MG CAP PO SCH ×3 (09:36→22:04)
[2018-08-23] MEDS: METOPROLOL TARTRATE 25 MG TAB PO SCH (09:36)
[2018-08-23] MEDS: CLOPIDOGREL 75 MG TAB PO SCH (09:36)
[2018-08-23] MEDS: SERTRALINE 25 MG TAB PO SCH (09:37)
[2018-08-23] MEDS: FAMOTIDINE 20 MG/2 ML VIAL IV SCH (09:37)
[2018-08-23] MEDS: lamoTRIgine 25 MG TAB PO SCH ×2 (09:37→22:05)
[2018-08-23] MEDS: lamoTRIgine 100 MG TAB PO SCH ×2 (09:38→22:05)
[2018-08-23] MEDS: ATORVASTATIN 40 MG TAB PO SCH ×2 (10:06→22:05)
--- NOTE | 2018-08-23 11:01 | CONS ---
CONSULTATION DATE OF SERVICE: 08/22/2018 REASON FOR CONSULTATION: HIV. HISTORY OF PRESENT ILLNESS: The patient is 53-year-old female who follows with me in the outpatient setting for HIV and the patient has been on for almost 12 years now. Patient recently did have and we were in the process of switching over to a different regimen. However, the patient has been on Tegretol limiting the choices and the drug interaction between Tegretol and HIV medication. The patient was in the process of getting weaned off the Tegretol and has been started on new seizure medication by her neurologist and she just finished weaning herself off the Tegretol. In the meantime, the patient has been brought to the ER at [facility] with mental status changes. The patient has been complaining of some chest pain as well and thought she was having a heart attack. The patient describing that she has to have burping and has to drink a lot of water, but denies having any shortness of breath. No nausea, no vomiting. No abdominal pain or any diarrhea. With these symptoms, the patient has been evaluated by the ER physician. On arrival to the ER, the patient has been afebrile. The patient white count has been normal. Kidney function has been normal. However, the patient did have mildly elevated troponin 1.65. Repeat is 0.615. The patient has been started on IV heparin. She has been continued on the and the Infectious Disease was consulted for further recommendations regarding management of her HIV. REVIEW OF SYSTEMS: Positive points have been mentioned in HPI. The rest of the systems have been negative. PAST MEDICAL HISTORY: Hypertension and [place], seizure disorder and HIV. PAST SURGICAL HISTORY: PTCA with stent. SOCIAL HISTORY: Denies smoking, drinking or drug use. . Lives with her . ALLERGIES: ALLERGIES TO PENICILLIN, PHENOBARBITAL. MEDICATION: Includes the patient is currently on: Zonegran and Zoloft, Narcan, Lopressor, Ativan, Lamictal, heparin, Pepcid, Lipitor. PHYSICAL EXAMINATION: VITAL SIGNS: Blood pressure is 136/84 with a pulse of 93, temperature 98. She is 98% on room air. GENERAL DESCRIPTION is a middle aged female lying in bed in no distress. No tachypnea or accessory muscles of respiration use. HEENT: Shows no pallor or scleral icterus. Oral mucosa membranes are dry. No pharyngeal erythema or thrush. NECK: Trachea central. No thyromegaly. LUNGS unlabored breathing. Clear to auscultation anteriorly. HEART S1, S2. Regular rate and rhythm. ABDOMEN: Soft. No tenderness. No guarding. No rigidity. EXTREMITIES: No edema of the feet. SKIN EXAMINATION: No rash or mass palpable. NEUROLOGICAL: The patient is awake, alert, oriented x3. Mood and affect normal. LABS: Hemoglobin is 12.4, white count 8.6, BUN of 6, creatinine 0.50. Troponin initial 1.65, repeat is 0.65. UA has been negative. Influenza serology has been negative. DIAGNOSTIC IMPRESSION AND PLAN: Patient with HIV in this patient who currently did have a good virological response. The last has been undetectable and has been around 12 or 1400 in a patient with cardiac event being managed by Cardiology. PLAN: 1. We will recommend to discontinue in view of the cardiac event. 2. Patient will be started on on discharge, which is compatible with her Zonegran that she is taking for seizures. Unfortunately, both were not available inpatient and hence could not be started. 3. We will follow up on clinical condition and further adjust medication if needed. was present at bedside. All his questions and concerns were answered. MMODL / IJN: [id number] /
--- NOTE | 2018-08-23 14:58 | CONS ---
CONSULTATION CHIEF COMPLAINT: Acute AR. HISTORY OF PRESENT ILLNESS: Luiza is a 53-year-old lady with history of coronary artery disease, status post prior angioplasty more than a year ago, history of seizure disorder, hypertension, dyslipidemia, who presented to the hospital having felt somewhat unwell, not her usual self and somewhat confused. She was brought to the emergency room where sodium was low and troponin was high. Due to this, a diagnosis of non ST-segment elevation AR was made and she is being treated with intravenous heparin. The first set of troponin was 1.6, the second set was 0.6. The patient did have a seizure while she was in the ER, had been evaluated by a neurologist and her seizure medication had been adjusted. EKG shows sinus rhythm with nonspecific ST-T wave changes. 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 At the time of my evaluation patient is chest pain-free, hemodynamically stable and denies shortness of breath. PAST MEDICAL HISTORY: Significant for coronary artery disease, status post angioplasty, dyslipidemia, and seizure disorder. MEDICATIONS: Include aspirin, Lamictal, Zoloft, Ativan, Lasix, Plavix, Coreg 12.5 b.i.d., Lipitor 40 daily, and Zonegran. ALLERGIC: TO PENICILLIN AND PHENOBARBITAL. FAMILY HISTORY: Family history is negative for premature coronary artery disease. SOCIAL HISTORY: Negative for current smoking, EtOH abuse or drug abuse. REVIEW OF SYSTEMS: HEENT is unremarkable. Cardiac as described above. Respiratory as described above. GI negative. negative. Allergy negative. SKIN: Negative. Musculoskeletal significant for arthritis. Psychosocial negative. Endocrine: Negative. Derm: Negative. Constitutional negative. Oncological negative. Neurological: Significant for seizure disorder. Rest of the system review is not relevant. EXAM: Comfortable at rest. Afebrile. Heart rate is 84 beats per minute. Blood pressure is 130/77, respiratory rate 18. Chest exam reveals good air entry bilaterally. Heart exam reveals first and second heart sounds. No gallop. Abdomen is soft, nontender. Exam of extremities did not reveal any edema. Peripheral pulses are felt. 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 LABS: Are as described above. EKG is as described above. ASSESSMENT: 1. Acute non ST-segment elevation myocardial infarction. 2. Confusion, probably related to hyponatremia. 3. Seizure disorder. PLAN: The patient will need and would benefit from cardiac catheterization. I am going to continue the patient on aspirin, on Lipitor, heparin, Plavix, do a 2D echo and schedule her for a catheterization tomorrow. Hopefully, she will not have any further episodes of seizures. MMODL / IJN: [id number] /
--- NOTE | 2018-08-23 16:33 | P.PN ---
Subjective 53-year-old admitted secondary to seizure, patient does have history of seizure disorder and patient's Lamictal dose is being increased by neurology patient also has non-ST elevation microinfarction with troponin going up to around 1.5 patient will go for cardiac catheterization tomorrow patient is presently on IV heparin. Patient came and hyponatremic which is able to make hyponatremia presently improved and is 138 now. Patient is comparing of earache my suspicion is low for acute suppurative otitis media will not require any antibiotics at this time. Constitutional: Denied any fatigue denied any fever. Cardio vascular: denied any chest pain, palpitations Gastrointestinal denied any nausea vomiting Pulmonary: Denied any shortness of breath cough Neurologic denied any new focal deficits All inpatient medications were reviewed and appropriate changes in these medications as dictated in the interval history and assessment and plan. Objective - Vital Signs Vital signs: Vital Signs Temp 97.9 F 08/23/18 15:04 Pulse 90 08/23/18 15:07 Resp 18 08/23/18 15:07 BP 138/66 08/23/18 15:04 Pulse Ox 100 08/23/18 15:04 Intake & Output 08/22/18 08/23/18 08/23/18 18:59 06:59 18:59 Intake Total 73.245 214.154 Balance 73.245 214.154 Intake: Intake, IV Titration 73.245 89.154 Amount Heparin Sod,Pork in 0.45% 73.245 89.154 NaCl 25,000 unit In 0.45 % NaCl 1 250ml.bag @ 12 UNITS/KG/HR 6.53 mls/hr IV .Q24H [facility] Rx#: [id number] Oral 125 Other: # Voids 2 1 - Exam PHYSICAL EXAMINATION: GENERAL: The patient is alert and oriented x3, not in any acute distress. Well developed, well nourished. HEENT: Pupils are round and equally reacting to light. EOMI. No scleral icterus. No conjunctival pallor. Normocephalic, atraumatic. No pharyngeal erythema. No thyromegaly. CARDIOVASCULAR: S1 and S2 present. No murmurs, rubs, or gallops. PULMONARY: Chest is clear to auscultation, no wheezing or crackles. ABDOMEN: Soft, nontender, nondistended, normoactive bowel sounds. No palpable organomegaly. MUSCULOSKELETAL: No joint swelling or deformity. EXTREMITIES: No cyanosis, clubbing, or pedal edema. NEUROLOGICAL: Gross neurological examination did not reveal any focal deficits. SKIN: No rashes. - Labs CBC & Chem 7: 08/23/18 05:44 08/22/18 14:36 Labs: Abnormal Lab Results - Last 24 Hours (Table) 08/23/18 08/23/18 Range/Units 05:44 05:44 RBC 2.97 L (3.80-5.40) m/uL MCV 123.8 H (80.0-100.0) fL MCH 41.9 H (25.0-35.0) pg APTT 55.9 H (22.0-30.0) sec Microbiology - Last 24 Hours (Table) 08/22/18 03:55 Blood Culture - Preliminary Blood No Growth after 24 hours Assessment and Plan Plan: -Breakthrough seizure: Patient does have seizure disorder management as mentioned above neurology validate the patient patient delirium is secondary to seizure -Acute non-ST elevation myocardial infarction patient on heparin drip antiplatelet therapy statin. 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
[2018-08-23] MEDS: PANTOPRAZOLE 40 MG/10 ML VIAL IVP SCH (18:43)
[2018-08-23] MEDS: NYSTATIN 100,000 UNIT/ML SUSP 500,000 UNIT/5 ML CUP PO SCH (18:43)
--- NOTE | 2018-08-23 18:48 | P.PN ---
Subjective Progress Note Date: 08/23/18 This patient is a 53-year-old female was admitted yesterday to hospital with chest pain and possible non-ST segment elevation myocardial infarction. Cardiology has been consulted and has reviewed her case. She is being scheduled for cardiac catheterization tomorrow. Patient has a known history of underlying seizure disorder and is currently on 2 anticonvulsants namely Lamictal and Zonisamide. She was just recently weaned off of Tegretol due to interaction with her HIV medications. She is to be started on a new HIV medication tomorrow which is compatible with her current anticonvulsant medications. She states she has been feeling some discomfort in the chest this afternoon and also complains of left ear pain. She has had no further seizure events. We're waiting anticonvulsant blood levels to return from the laboratory for both anticonvulsants. As noted she is being scheduled for cardiac catheterization tomorrow by cardiology. Patient did come in with significant hyponatremia causing her to be quite confused on admission. There was also some degree of polydipsia contributing to the hyponatremia. Her serum sodium today is therapeutic at 138. We will continue to follow her progress closely during this admission. As noted she is being followed for her history of HIV and hepatitis C. She is being followed by Dr. Mcconnell who is adjusting her antiviral therapy starting tomorrow. We will continue to monitor her condition closely during this admission. Objective - Vital Signs Vital signs: Vital Signs Temp 97.9 F 08/23/18 15:04 Pulse 90 08/23/18 15:07 Resp 18 08/23/18 15:07 BP 138/66 08/23/18 15:04 Pulse Ox 100 08/23/18 15:04 Intake & Output 08/22/18 08/23/18 08/23/18 18:59 06:59 18:59 Intake Total 73.245 214.154 Balance 73.245 214.154 Intake: Intake, IV Titration 73.245 89.154 Amount Heparin Sod,Pork in 0.45% 73.245 89.154 NaCl 25,000 unit In 0.45 % NaCl 1 250ml.bag @ 12 UNITS/KG/HR 6.53 mls/hr IV .Q24H [facility] Rx#: [id number] Oral 125 Other: # Voids 2 1 - Exam Physical examination: PHYSICAL EXAMINATION: Patient is resting comfortably in bed. VITAL SIGNS: Blood pressure is [138/65]. Heart rate is [90]. Respiration is [18] . Temperature is [97.9]. HEENT: Head is atraumatic, neck is supple, there were no carotid bruits. CHEST: Lungs are clear to auscultation and percussion. CARDIAC: S1, S2 normal rate and rhythm. There is no murmur. ABDOMEN: Soft and nontender. Bowel sounds are present. EXTREMITIES: There is no pedal edema. Peripheral pulses are present. Neurological examination: Patient's neurological examination is nonfocal at this time. She is alert and oriented x 3. Cranial nerves II through XII are grossly intact. Motor examination fails to reveal any focal weakness. Deep tendon reflexes are 1+ and symmetric. Plantar response is flexor bilaterally. - Labs CBC & Chem 7: 08/23/18 05:44 08/22/18 14:36 Labs: Abnormal Lab Results - Last 24 Hours (Table) 08/23/18 08/23/18 Range/Units 05:44 05:44 RBC 2.97 L (3.80-5.40) m/uL MCV 123.8 H (80.0-100.0) fL MCH 41.9 H (25.0-35.0) pg APTT 55.9 H (22.0-30.0) sec Microbiology - Last 24 Hours (Table) 08/22/18 03:55 Blood Culture - Preliminary Blood No Growth after 24 hours Assessment and Plan (1) Seizure disorder Current Visit: Yes Status: Acute Code(s): G40.909 - EPILEPSY, UNSP, NOT INTRACTABLE, WITHOUT STATUS EPILEPTICUS SNOMED Code(s): 299260670 (2) Hyponatremia Current Visit: Yes Status: Acute Code(s): E87.1 - HYPO-OSMOLALITY AND HYPONATREMIA SNOMED Code(s): 89017813 (3) HIV disease Current Visit: Yes Status: Acute Code(s): B20 - HUMAN IMMUNODEFICIENCY VIRUS [HIV] DISEASE SNOMED Code(s): 24715878 (4) NSTEMI (non-ST elevated myocardial infarction) Current Visit: Yes Status: Acute Code(s): I21.4 - NON-ST ELEVATION (NSTEMI) MYOCARDIAL INFARCTION SNOMED Code(s): 89818100 Plan: This patient is a 53-year-old female who is been followed in the outpatient neurology clinic for seizure disorder. She has been slowly transitioning to 2 anticonvulsant medications for treatment of her seizure disorder. She is currently taking Lamictal and zonisamide. The patient was brought in due to symptoms of confusion and chest pain. She was found to have evidence of a non- elevated ST segment myocardial infarction. She is been started on heparin protocol and is awaiting cardiology consultation. Patient has underlying history of HIV and hepatitis C. She has been on long-term antiviral therapy. She was being switched off of her anticonvulsant medications and was awaiting to start a new HIV medication which according to her and is to begin tomorrow. The patient was previously taking Tegretol. She stopped all Tegretol medications only a week ago and is now only on dual therapy with the 2 anticonvulsant medications today. We have recommended the patient to have anticonvulsant blood levels drawn. She is to continue on current dosage of both medications. We will obtain a routine EEG for further evaluation of seizure disorder. She also has evidence of hyponatremia etiology still unclear. Her serum sodium level yesterday was 128. Repeat serum sodium today is therapeutic at 136. She did have some degree of polydipsia and this may have produced a dilutional hyponatremia. Patient is now back to baseline level of function. Her computed tomography scan of the brain was completed in the ER and showed no acute abnormalities. We will continue with close seizure precautions for the patient during this admission. The patient was evaluated by cardiology and is scheduled for a cardiac catheterization tomorrow. She is to continue on her current anticonvulsant medications. Anticonvulsant blood levels are still pending from the laboratory. We will continue to follow her progress closely during this admission. Overall prognosis at this time remains guarded. Case was discussed at length with the patient and her at bedside. All of their questions were answered. Her overall prognosis remains guarded.
--- NOTE | 2018-08-23 23:11 | PN ---
PROGRESS NOTE DATE OF SERVICE: 08/23/2018 REASON FOR FOLLOWUP: 1. HIV. 2. Oral sores. INTERVAL HISTORY: The patient is currently afebrile. She is breathing comfortably. The patient denies having any chest pain or shortness of breath or cough. No abdominal pain. No diarrhea. She is complaining of some sores in her mouth and has slight difficulty swallowing. PHYSICAL EXAMINATION: Blood pressure is 138/66, pulse of 90, temperature 97.9. She is 100% on room air. General description is a middle-aged female lying in bed in no distress. HEENT EXAMINATION: The patient did have a sore in her left cheek area but no definite cellulitis or any induration. LUNGS: Unlabored breathing. Clear to auscultation anteriorly. HEART: S1, S2. Regular rate and rhythm. ABDOMEN: Soft. No tenderness. LABS: Hemoglobin is 12.4, white count 6.1 with a BUN of 6, creatinine 0.50. DIAGNOSTIC IMPRESSION AND PLAN: 1. Patient with HIV. Her HIV is well controlled in the outpatient setting. Patient's last viral load was undetectable. CD4 count was more than 1200. The patient at this time will be kept off the in view of the cardiac event. She will be transitioned to on discharge. It is currently unavailable at this facility. 2. Patient with oral sores. Will add nystatin swish and swallow and a short course of oral . Patient is ALLERGIC TO PENICILLIN. Family was present at bedside. Their questions and concerns were answered. MMODL / IJN: [id number] /
[2018-08-24] MEDS: NYSTATIN 100,000 UNIT/ML SUSP 500,000 UNIT/5 ML CUP PO SCH ×5 (06:40→21:43)
[2018-08-24] MEDS: lamoTRIgine 100 MG TAB PO SCH ×2 (06:41→21:42)
[2018-08-24] MEDS: METOPROLOL TARTRATE 25 MG TAB PO SCH (06:41)
[2018-08-24] MEDS: CLOPIDOGREL 75 MG TAB PO SCH (06:42)
[2018-08-24] MEDS: lamoTRIgine 25 MG TAB PO SCH ×2 (06:42→21:42)
[2018-08-24] MEDS: ZONISAMIDE 100 MG CAP PO SCH ×3 (06:42→21:42)
[2018-08-24] MEDS: PANTOPRAZOLE 40 MG/10 ML VIAL IVP SCH (06:42)
[2018-08-24] MEDS: SERTRALINE 25 MG TAB PO SCH (06:42)
[2018-08-24] MEDS: LORazepam 1 MG TAB PO SCH ×4 (07:49→21:43)
[2018-08-24] MEDS: CLINDAMYCIN 150 MG CAP PO SCH ×3 (07:56→21:43)
[2018-08-24] MEDS: HEPARIN SOD,PORK IN 0.45% NACL 25,000 UNIT in 0.45% NACL 1 250ML.BAG IV SCH (08:01)
[2018-08-24] MEDS ORDERED: IV FLUID CONTINUATION 650 ML IV ONE (08:30)
[2018-08-24 08:52] LABS: Basophils # (A) 0.1 k/uL (0-0.2); Basophils % (A) 1 %; Eosinophils # (A) 0.2 k/uL (0-0.7); Eosinophils % (A) 5 %; HCT 34.8 % (34.0-46.0); HGB 11.4 gm/dL (11.4-16.0); Lymphocytes # (A) 2.2 k/uL (1.0-4.8); Lymphocytes % (A) 44 %; MCH 41.3 pg (25.0-35.0); MCHC 32.7 g/dL (31.0-37.0); MCV 126.5 fL (80.0-100.0); Macrocytosis Marked; Mean Platelet Volume 6.8; Monocytes # (A) 0.4 k/uL (0-1.0); Monocytes % (A) 8 %; Neutrophils # (A) 1.9 k/uL (1.3-7.7); Neutrophils % (A) 39 %; Platelet Count 238 k/uL (150-450); RBC 2.76 m/uL (3.80-5.40); RDW 13.1 % (11.5-15.5); WBC 4.9 k/uL (3.8-10.6)
[2018-08-24] MEDS: MIDAZOLAM 2 MG/2 ML VIAL IV ONE ×2 (08:56→09:06)
[2018-08-24] MEDS ORDERED: LIDOCAINE 1% INJ 10MG/ML (20 ML MDV) SQ ONE (08:59)
[2018-08-24] MEDS ORDERED: ATORVASTATIN 80 MG TAB PO SCH (09:00)
[2018-08-24] MEDS ORDERED: ASPIRIN 325 MG TAB PO SCH (09:00)
[2018-08-24] MEDS ORDERED: IOPAMIDOL-370 125ML BTL INJ ONE (09:09)
[2018-08-24] MEDS ORDERED: RX INFO: IV CONTRAST WAS GIVEN 1 EACH MISC MISCELLANE PRN (09:15)
--- NOTE | 2018-08-24 09:27 | EEG ---
ELECTROENCEPHALOGRAM REPORT DATE OF EE08/23/2018 ELECTROENCEPHALOGRAPHIC EXAMINATION REPORT: INDICATION FOR EXAMINATION: This patient is a 53-year-old female with history of seizure disorder. Patient admitted with severe hyponatremia and breakthrough seizure. Patient also with acute chest pain and [id number] myocardial infarction. AGE: [age]. EEG FINDINGS: A routine 21-channel awake digital EEG recording was accomplished utilizing the 10-20 international system with bipolar and referential montages. The background activity in the most alert resting state consists of a low to medium amplitude, fairly well developed and well sustained 6-7 Hz activity over the posterior head regions. This posterior rhythm attenuates to eye opening. There is a small amount of low amplitude 18-20 Hz beta activity seen maximally over the anterior head regions. Muscle and movement artifact was observed on a few occasions during the tracing. Hyperventilation was not performed. Photic stimulation at flash frequencies of 2-30 Hz produced a good symmetrical occipital driving response. No epileptiform discharges were seen. IMPRESSION: This EEG is mildly abnormal in a diffuse fashion due to slight slowing of the EEG background. The EEG failed to reveal any focal, lateralized, or epileptiform abnormalities. Clinical correlation is recommended. MMODL / IJN: [id number] /
[2018-08-24] MEDS: SODIUM CHLORIDE 0.9% 1,000 ML IV SCH ×2 (10:24→21:44)
--- NOTE | 2018-08-24 10:48 | P.PN ---
Subjective 53-year-old admitted secondary to seizure, patient does have history of seizure disorder and patient's Lamictal dose is being increased by neurology patient also has non-ST elevation microinfarction with troponin going up to around 1.5 patient will go for cardiac catheterization tomorrow patient is presently on IV heparin. Patient came and hyponatremic which is able to make hyponatremia presently improved and is 138 now. Patient is comparing of earache my suspicion is low for acute suppurative otitis media will not require any antibiotics at this time. 08/24/2018 No overnight events patient will undergo cardiac catheterization today Constitutional: Denied any fatigue denied any fever. Cardio vascular: denied any chest pain, palpitations Gastrointestinal denied any nausea vomiting Pulmonary: Denied any shortness of breath cough Neurologic denied any new focal deficits All inpatient medications were reviewed and appropriate changes in these medications as dictated in the interval history and assessment and plan. Objective - Vital Signs Vital signs: Vital Signs Temp 97.9 F 08/24/18 07:54 Pulse 80 08/24/18 07:54 Resp 17 08/24/18 07:59 BP 145/80 08/24/18 10:22 Pulse Ox 100 08/24/18 07:54 Intake & Output 08/23/18 08/24/18 08/24/18 18:59 06:59 18:59 Intake Total 310.058 Output Total 400 Balance -89.942 Weight 53.7 kg Intake: IV 100 Intake, IV Titration 210.058 Amount Heparin Sod,Pork in 0.45% 210.058 NaCl 25,000 unit In 0.45 % NaCl 1 250ml.bag @ 12 UNITS/KG/HR 6.53 mls/hr IV .Q24H [facility] Rx#: [id number] Output: Urine 400 Other: # Voids 1 1 - Exam PHYSICAL EXAMINATION: GENERAL: The patient is alert and oriented x3, not in any acute distress. Well developed, well nourished. HEENT: Pupils are round and equally reacting to light. EOMI. No scleral icterus. No conjunctival pallor. Normocephalic, atraumatic. No pharyngeal erythema. No thyromegaly. CARDIOVASCULAR: S1 and S2 present. No murmurs, rubs, or gallops. PULMONARY: Chest is clear to auscultation, no wheezing or crackles. ABDOMEN: Soft, nontender, nondistended, normoactive bowel sounds. No palpable organomegaly. MUSCULOSKELETAL: No joint swelling or deformity. EXTREMITIES: No cyanosis, clubbing, or pedal edema. NEUROLOGICAL: Gross neurological examination did not reveal any focal deficits. SKIN: No rashes. - Labs CBC & Chem 7: 08/24/18 07:15 08/22/18 14:36 Labs: Abnormal Lab Results - Last 24 Hours (Table) 08/24/18 08/24/18 Range/Units 07:15 07:15 RBC 2.76 L (3.80-5.40) m/uL MCV 126.5 H (80.0-100.0) fL MCH 41.3 H (25.0-35.0) pg APTT 106.9 H* (22.0-30.0) sec Microbiology - Last 24 Hours (Table) 08/22/18 03:55 Blood Culture - Preliminary Blood No Growth after 48 hours Assessment and Plan Plan: -Breakthrough seizure: Patient does have seizure disorder management as mentioned above neurology evaluated the patient patient delirium is secondary to seizure area no more seizure episodes -Acute non-ST elevation myocardial infarction patient on heparin drip antiplatelet therapy statin. Patient is undergo cardiac catheterization today -Hyponatremia secondary to psychogenic polydipsia and secondary to Lasix which will be held -Coronary artery disease with cardiac catheterization in the past -History of HIV and hepatitis C for which patient is on antiretroviral therapy which will be continued him up patient's previous viral load was nondetectable. Patient was started on clindamycin probably for possible middle ear infection and patient was started on nystatin for oral thrush -Essential hypertension -Hyperlipidemia
--- NOTE | 2018-08-24 10:59 | CC ---
CARDIAC CATHETERIZATION REPORT INDICATION: Non ST-segment elevation RI. PROCEDURE NOTE: After obtaining informed consent, left heart catheterization and coronary angiogram are performed via the right femoral artery using standard Sejal catheters. Patient tolerated the procedure well without any obvious immediate complications. A femoral angiogram was performed and decision was made for manual hemostasis as the site of entry is below the bifurcation. Patient received moderate conscious sedation. Total sedation time was 15 minutes. FINDINGS: 1. HEMODYNAMICS: Left ventricular end-diastolic pressure is 8 mm. There is no significant gradient across the aortic valve. 2. LEFT VENTRICULOGRAM: Left ventriculogram is not performed. 3. ANGIOGRAPHIC DATA: LEFT MAIN CORONARY ARTERY: Left main coronary artery is a normal-sized vessel and is free of stenosis. Divides into left anterior descending coronary artery and circumflex coronary artery. LAD and its branches are free of significant stenosis. Circumflex coronary artery which was previously stented appears patent. Right coronary artery is a large dominant vessel. It was previously stented in the proximal part, stent appears patent. Distal to the stent there is a 20%-30% stenosis. CONCLUSION: Patent stent within the circumflex coronary artery and right coronary artery. No focal areas of a stenosis. Patient's elevated troponin is probably noncardiac in origin, could be related to the seizures or could be due to a plaque rupture, and her management is going to be in the form of risk factor modifications. MMODL / IJN: [id number] /
--- NOTE | 2018-08-24 13:33 | ECHOF ---
Referral Reason:NSTEMI MEASUREMENTS -------- HEIGHT: 165.1 cm WEIGHT: 54.4 kg BP: 128/79 RVIDd: 2.0 cm (< 3.3) IVSd: 0.9 cm (0.6 - 1.1) LVIDd: 4.2 cm (3.9 - 5.3) LVPWd: 1.0 cm (0.6 - 1.1) IVSs: 1.1 cm LVIDs: 3.0 cm LVPWs: 1.2 cm Ao Diam: 3.0 cm (2.0 - 3.7) AV Cusp: 1.6 cm (1.5 - 2.6) LA Diam: 1.6 cm (2.7 - 3.8) EPSS: 0.3 cm MV E Albert: 0.88 m/s MV DecT: 251 ms MV A Albert: 0.82 m/s MV E/A Ratio: 1.07 RAP: 5.00 mmHg RVSP: 35.51 mmHg MV EF SLOPE: 92.52 mm/s (70 - 150) MV EXCURSION: 2.03 cm (> 18.000) FINDINGS -------- Sinus rhythm. This was a technically adequate study. The left ventricular size is normal. Left ventricular wall thickness is normal. Overall left vent ricular systolic function is normal with, an EF between 55 - 60 %. The right ventricle is normal in size and function. Normal LA size by volume 22+/-6 ml/m2. The right atrium is normal in size. The aortic valve is trileaflet, and appears structurally normal. No aortic stenosis or regurgitation. The mitral valve leaflets are mildly thickened. There is trace mitral regurgitation. Trace tricuspid regurgitation present. Right ventricular systolic pressure is normal at < 35 mmHg. There is no evidence of pulmonary hypertension. Trace/mild (physiologic) pulmonic regurgitation. The aortic root size is normal. Normal inferior vena cava with normal inspiratory collapse consistent with estimated right atrial pre ssure of 5 mmHg. There is no pericardial effusion. CONCLUSIONS -------- 1. Sinus rhythm. 2. This was a technically adequate study. 3. The left ventricular size is normal. 4. Left ventricular wall thickness is normal. 5. Overall left ventricular systolic function is normal with, an EF between 55 - 60 %. 6. Normal LA size by volume 22+/-6 ml/m2. 7. The aortic valve is trileaflet, and appears structurally normal. No aortic stenosis or regurgitati on. 8. The mitral valve leaflets are mildly thickened. 9. There is trace mitral regurgitation. 10. Trace tricuspid regurgitation present. 11. Right ventricular systolic pressure is normal at < 35 mmHg. 12. There is no evidence of pulmonary hypertension. 13. Trace/mild (physiologic) pulmonic regurgitation. 14. The aortic root size is normal. 15. There is no pericardial effusion. PIPE CUTTER: Chadwick Nunez RDCS
--- NOTE | 2018-08-24 20:42 | P.PN ---
Subjective Progress Note Date: 08/24/18 This patient is a 53-year-old female was admitted yesterday to hospital with chest pain and possible non-ST segment elevation myocardial infarction. Cardiology has been consulted and has reviewed her case. She is being scheduled for cardiac catheterization tomorrow. Patient has a known history of underlying seizure disorder and is currently on 2 anticonvulsants namely Lamictal and Zonisamide. She was just recently weaned off of Tegretol due to interaction with her HIV medications. She is to be started on a new HIV medication tomorrow which is compatible with her current anticonvulsant medications. She states she has been feeling some discomfort in the chest this afternoon and also complains of left ear pain. She has had no further seizure events. We're waiting anticonvulsant blood levels to return from the laboratory for both anticonvulsants. As noted she is being scheduled for cardiac catheterization that was done by cardiology today. Report from her cardiac cath indicates no significant coronary artery stenosis. We will await further recommendations from cardiology. Patient did come in with significant hyponatremia causing her to be quite confused on admission. There was also some degree of polydipsia contributing to the hyponatremia. Her serum sodium today is therapeutic at 138. Patient is much more awake and alert today. She did undergo routine EEG which was reviewed yesterday and is normal for her age. Her Lamictal level today is therapeutic at 4.0. Her zonisamide level is also therapeutic at 11.0. Both of these anticonvulsant medications are in therapeutic range. We reviewed the results of her EEG and anticonvulsant blood levels today with the patient and her who is at bedside. There were updated on all of her results. We will await any further recommendations from cardiology. We will continue to follow her progress closely during this admission. As noted she is being followed for her history of HIV and hepatitis C. She is being followed by Dr. Mcconnell who is adjusting her antiviral therapy starting tomorrow. If the patient is discharged she may schedule follow-up in the outpatient neurology clinic in 3-4 weeks. We will continue to monitor her condition closely during this admission. Objective - Vital Signs Vital signs: Vital Signs Temp 97.6 F 08/24/18 19:55 Pulse 80 08/24/18 07:54 Resp 17 08/24/18 19:55 BP 136/65 08/24/18 19:55 Pulse Ox 100 08/24/18 19:55 Intake & Output 08/24/18 08/24/18 08/25/18 06:59 18:59 06:59 Intake Total 532.058 Output Total 400 400 Balance 132.058 -400 Weight 53.7 kg 53.7 kg Intake: IV 100 Intake, IV Titration 210.058 Amount Heparin Sod,Pork in 0.45% 210.058 NaCl 25,000 unit In 0.45 % NaCl 1 250ml.bag @ 12 UNITS/KG/HR 6.53 mls/hr IV .Q24H [facility] Rx#: [id number] Oral 222 Output: Urine 400 400 Other: # Voids 1 1 - Exam Physical examination: PHYSICAL EXAMINATION: Patient is resting comfortably in bed. VITAL SIGNS: Blood pressure is [122/68]. Heart rate is [80]. Respiration is [17] . Temperature is [98.0]. HEENT: Head is atraumatic, neck is supple, there were no carotid bruits. CHEST: Lungs are clear to auscultation and percussion. CARDIAC: S1, S2 normal rate and rhythm. There is no murmur. ABDOMEN: Soft and nontender. Bowel sounds are present. EXTREMITIES: There is no pedal edema. Peripheral pulses are present. Neurological examination: Patient's neurological examination is nonfocal at this time. She is alert and oriented x 3. Cranial nerves II through XII are grossly intact. Motor examination fails to reveal any focal weakness. Deep tendon reflexes are 1+ and symmetric. Plantar response is flexor bilaterally. - Labs CBC & Chem 7: 08/24/18 07:15 08/22/18 14:36 Labs: Abnormal Lab Results - Last 24 Hours (Table) 08/24/18 08/24/18 Range/Units 07:15 07:15 RBC 2.76 L (3.80-5.40) m/uL MCV 126.5 H (80.0-100.0) fL MCH 41.3 H (25.0-35.0) pg APTT 106.9 H* (22.0-30.0) sec Microbiology - Last 24 Hours (Table) 08/22/18 03:55 Blood Culture - Preliminary Blood No Growth after 48 hours Assessment and Plan (1) Seizure disorder Current Visit: Yes Status: Acute Code(s): G40.909 - EPILEPSY, UNSP, NOT INTRACTABLE, WITHOUT STATUS EPILEPTICUS SNOMED Code(s): 147388181 (2) Hyponatremia Current Visit: Yes Status: Acute Code(s): E87.1 - HYPO-OSMOLALITY AND HYPONATREMIA SNOMED Code(s): 71419807 (3) HIV disease Current Visit: Yes Status: Acute Code(s): B20 - HUMAN IMMUNODEFICIENCY VIRUS [HIV] DISEASE SNOMED Code(s): 02972206 (4) NSTEMI (non-ST elevated myocardial infarction) Current Visit: Yes Status: Acute Code(s): I21.4 - NON-ST ELEVATION (NSTEMI) MYOCARDIAL INFARCTION SNOMED Code(s): 83431295 Plan: This patient is a 53-year-old female who is been followed in the outpatient neurology clinic for seizure disorder. She has been slowly transitioning to 2 anticonvulsant medications for treatment of her seizure disorder. She is currently taking Lamictal and zonisamide. The patient was brought in due to symptoms of confusion and chest pain. She was found to have evidence of a non- elevated ST segment myocardial infarction. She is been started on heparin protocol and is awaiting cardiology consultation. Patient has underlying history of HIV and hepatitis C. She has been on long-term antiviral therapy. She was being switched off of her anticonvulsant medications and was awaiting to start a new HIV medication which according to her and is to begin tomorrow. The patient was previously taking Tegretol. She stopped all Tegretol medications only a week ago and is now only on dual therapy with the 2 anticonvulsant medications today. We have recommended the patient to have anticonvulsant blood levels drawn. She is to continue on current dosage of both medications. We will obtain a routine EEG for further evaluation of seizure disorder. She also has evidence of hyponatremia etiology still unclear. Repeat serum sodium today is therapeutic at 138. She did have some degree of polydipsia and this may have produced a dilutional hyponatremia. Patient is now back to baseline level of function. Her computed tomography scan of the brain was completed in the ER and showed no acute abnormalities. We will continue with close seizure precautions for the patient during this admission. The patient was evaluated by cardiology and is scheduled for a cardiac catheterization. Her cardiac cath was completed today and results indicate no significant coronary artery disease. Stent remains patent. She is to continue on her current anticonvulsant medications. Anticonvulsant blood levels were reviewed today and both are in the therapeutic range. We discussed the results of her EEG with her and her at bedside today as well which came back normal for her age. No evidence of any epileptiform discharges during this tracing. We have gone over the results of all of her testing with her today. She should continue on her current dosage of both anticonvulsant medications. We will continue to follow her progress closely during this admission. Case was discussed at length with the patient and her at bedside. All of their questions were answered. Patient may follow-up in the outpatient neurology clinic in 3-4 weeks after discharge. Her overall prognosis remains guarded.
[2018-08-24] MEDS: ATORVASTATIN 40 MG TAB PO SCH (21:42)
--- NOTE | 2018-08-25 03:12 | PN ---
PROGRESS NOTE DATE OF SERVICE: 08/24/2018. REASON FOR FOLLOW UP: 1. HIV. 2. Oral thrush. INTERVAL HISTORY: The patient is currently afebrile. The patient is status post cardiac cath with no evidence of any obstructive coronary artery disease. No need for any intervention. The patient denies having any chest pain or shortness of breath or cough. No abdominal pain. No diarrhea. PHYSICAL EXAMINATION: Blood pressure 136/55 with a pulse of 80, temperature 97.6. She is 100% on room air. General description is a middle aged female lying in bed in no distress. Respiratory system: Unlabored breathing. Clear to auscultation anteriorly. Heart S1, S2. Regular rate and rhythm. Abdomen soft, no tenderness. LAB: Hemoglobin 11.4, white count 4.9 with a BUN of 6, creatinine 0.50. DIAGNOSTIC IMPRESSION AND PLAN: 1. Patient with HIV admitted to the hospital with possible myocardial infarction, status post cardiac cath with no evidence of any obstructive coronary artery disease. The patient has been discontinued. Prescription for has been sent to her pharmacy that she will resume at home. 2. Oral sores. Continue with the nystatin swish and swallow and a short course of clindamycin and close outpatient followup. MMODL / IJN: [id number] /
[2018-08-25 05:56] VITALS: RESP 16
[2018-08-25 06:40] LABS: Basophils % (A) 1 %; Eosinophils # (A) 0.2 k/uL (0-0.7); Eosinophils % (A) 4 %; HCT 36.3 % (34.0-46.0); HGB 11.9 gm/dL (11.4-16.0); Lymphocytes # (A) 2.5 k/uL (1.0-4.8); Lymphocytes % (A) 42 %; MCH 41.6 pg (25.0-35.0); MCHC 32.8 g/dL (31.0-37.0); MCV 126.6 fL (80.0-100.0); Macrocytosis Marked; Mean Platelet Volume 6.5; Monocytes # (A) 0.5 k/uL (0-1.0); Monocytes % (A) 8 %; Neutrophils # (A) 2.5 k/uL (1.3-7.7); Neutrophils % (A) 42 %; Platelet Count 257 k/uL (150-450); RBC 2.86 m/uL (3.80-5.40); RDW 13.2 % (11.5-15.5); WBC 5.9 k/uL (3.8-10.6)
[2018-08-25] MEDS: LORazepam 1 MG TAB PO SCH (08:27)
[2018-08-25] MEDS: lamoTRIgine 25 MG TAB PO SCH (08:27)
[2018-08-25] MEDS: NYSTATIN 100,000 UNIT/ML SUSP 500,000 UNIT/5 ML CUP PO SCH (08:27)
[2018-08-25] MEDS: PANTOPRAZOLE 40 MG/10 ML VIAL IVP SCH (08:27)
[2018-08-25] MEDS: SERTRALINE 25 MG TAB PO SCH (08:27)
[2018-08-25] MEDS: METOPROLOL TARTRATE 25 MG TAB PO SCH (08:27)
[2018-08-25] MEDS: CLINDAMYCIN 150 MG CAP PO SCH (08:27)
[2018-08-25] MEDS: CLOPIDOGREL 75 MG TAB PO SCH (08:27)
[2018-08-25] MEDS: lamoTRIgine 100 MG TAB PO SCH (08:27)
[2018-08-25 08:33] VITALS: BP 141/67; PULSE 94; TEMP 97.4
[2018-08-25 09:25] LABS: Poikilocytosis (M) Present
--- NOTE | 2018-08-25 11:32 | P.DS ---
Providers Date of admission: 08/22/18 06:08 Attending physician: Abraham Mcpherson MD Consults: 08/22/18 06:06 Consult Physician Urgent Consulting Provider: Angie Mulligan Consult Reason/Comments: altered, seizure Do you want consulting provider notified?: Yes 08/22/18 06:31 Consult Physician Urgent Consulting Provider: [facility] Consult Reason/Comments: NSTEMI Do you want consulting provider notified?: Yes 08/23/18 15:30 Consult Physician Routine Consulting Provider: Christopher Mcconnell Consult Reason/Comments: HIV, know to Dr. Mcconnell Do you want consulting provider notified?: Already Contacted Primary care physician: [facility] Course: 53-year-old admitted secondary to seizure, patient does have history of seizure disorder and patient's Lamictal dose is being increased by neurology patient also has non-ST elevation microinfarction with troponin going up to around 1.5 patient will go for cardiac catheterization tomorrow patient is presently on IV heparin. Patient came and hyponatremic which is able to make hyponatremia presently improved and is 138 now. Patient is comparing of earache my suspicion is low for acute suppurative otitis media will not require any antibiotics at this time. 08/24/2018 No overnight events patient will undergo cardiac catheterization today 08/25/2018 No overnight events no more seizures patient underwent cardia catheterization which did not show any significant stent of atherosclerotic coronary vascular disease. Regarding the middle ear infection patient was started on clindamycin. Was evaluated by infectious disease to change the antiretroviral therapy. Patient's the antiseizure medication levels are therapeutic at this time patient's seizures were considered secondary to noncompliance with medications. Was evaluated by neurology EEG did not show any seizure activity. Patient is an bleeding will be discharged today. She is comparing of bilateral pedal edema with Lasix is being discontinued because of her hyponatremia. Patient will be provided with compression socks can use Lasix on as-needed basis at home not on daily basis - Exam PHYSICAL EXAMINATION: GENERAL: The patient is alert and oriented x3, not in any acute distress. Well developed, well nourished. HEENT: Pupils are round and equally reacting to light. EOMI. No scleral icterus. No conjunctival pallor. Normocephalic, atraumatic. No pharyngeal erythema. No thyromegaly. CARDIOVASCULAR: S1 and S2 present. No murmurs, rubs, or gallops. PULMONARY: Chest is clear to auscultation, no wheezing or crackles. ABDOMEN: Soft, nontender, nondistended, normoactive bowel sounds. No palpable organomegaly. MUSCULOSKELETAL: No joint swelling or deformity. EXTREMITIES: No cyanosis, clubbing, mild bilateral pitting pedal edema due to IV fluids NEUROLOGICAL: Gross neurological examination did not reveal any focal deficits. SKIN: No rashes. Assessment and Plan Plan: -Breakthrough seizure: noncompliance with medication -elevated troponins with the cardiac catheterization results as mentioned above reason for elevated troponins is not clear -Hyponatremia secondary to psychogenic polydipsia and secondary to Lasix which will be held -Coronary artery disease with cardiac catheterization in the past -History of HIV and hepatitis C for which patient is on antiretroviral therapy which will be continued him up patient's previous viral load was nondetectable. Patient was started on clindamycin probably for possible middle ear infection and patient was started on nystatin for oral thrush -Essential hypertension -Hyperlipidemia Patient Condition at Discharge: Serious Plan - Discharge Summary Discharge Rx Participant: No New Discharge Prescriptions: New Dolutegravir Sodium [Tivicay] 50 mg PO DAILY #30 tablet Emtricitabine/Tenofovir (Tdf) [Truvada 200 mg-300 mg Tablet] 1 tab PO DAILY # 30 tab Clindamycin [Cleocin] 300 mg PO TID #20 cap Nystatin 100,000 Unit/ml Susp [Mycostatin Oral Susp] 500,000 unit PO QID #30 cup Continue Sertraline [Zoloft] 25 mg PO DAILY Atorvastatin [Lipitor] 40 mg PO HS LORazepam [Ativan] 1 mg PO TID PRN PRN Reason: Anxiety lamoTRIgine [LaMICtal] 100 mg PO BID lamoTRIgine [LaMICtal] 50 mg PO BID Clopidogrel [Plavix] 75 mg PO DAILY@1400 Aspirin [Adult Low Dose Aspirin EC] 81 mg PO DAILY Carvedilol [Coreg] 12.5 mg PO BID Zonisamide [Zonegran] 100 mg PO DIRECTED Discontinued Furosemide [Lasix] 20 mg PO DAILY Abacavir/Lamivudine/Zidovudine [Ujxdkfox-Mxvnavfahz-Jikdn Tab] 1 tab PO BID Discharge Medication List Atorvastatin [Lipitor] 40 mg PO HS 07/04/17 [History] Clopidogrel [Plavix] 75 mg PO DAILY@1400 07/04/17 [History] LORazepam [Ativan] 1 mg PO TID PRN 07/04/17 [History] Sertraline [Zoloft] 25 mg PO DAILY 07/04/17 [History] lamoTRIgine [LaMICtal] 50 mg PO BID 07/04/17 [History] lamoTRIgine [LaMICtal] 100 mg PO BID 07/04/17 [History] Aspirin [Adult Low Dose Aspirin EC] 81 mg PO DAILY 08/22/18 [History] Carvedilol [Coreg] 12.5 mg PO BID 08/22/18 [History] Zonisamide [Zonegran] 100 mg PO DIRECTED 08/22/18 [History] Dolutegravir Sodium [Tivicay] 50 mg PO DAILY #30 tablet 08/24/18 [Rx] Emtricitabine/Tenofovir (Tdf) [Truvada 200 mg-300 mg Tablet] 1 tab PO DAILY #30 tab 08/24/18 [Rx] Clindamycin [Cleocin] 300 mg PO TID #20 cap 08/25/18 [Rx] Nystatin 100,000 Unit/ml Susp [Mycostatin Oral Susp] 500,000 unit PO QID #30 cup 08/25/18 [Rx] Follow up Appointment(s)/Referral(s): Antonia Roberts MD [Family Provider] - 08/30/18 3:00 pm (Thursday) Antelmo Mulligan MD [STAFF PHYSICIAN] - 09/15/18 11:50 am (Thursday) Grant Frederick MD [Primary Care Provider] - 09/01/18 2:00 pm (Thursday) Discharge Disposition: HOME SELF-CARE
--- NOTE | 2018-08-25 14:03 | P.PN ---
Subjective Progress Note Date: 08/25/18 This is a 53-year-old female patient with known history of coronary artery disease and prior angioplasty, history of seizure disorder, hypertension, hyperlipidemia, who was brought to the emergency room, was diagnosed with non- ST elevation myocardial infarction. She was taken to the cardiac catheterization lab by Dr. Stovall which revealed a patent stent within the circumflex artery and right coronary artery, no focal areas of stenosis. Patient was seen and examined this morning, she denied any chest pain or difficulty in breathing. She states she's been up ambulating without any difficulty. Blood pressure 140/60 with a heart rate in the 90s. Right groin site is clean and dry, good distal pulse. Objective - Vital Signs Vital signs: Vital Signs Temp 97.4 F L 08/25/18 08:00 Pulse 94 08/25/18 08:00 Resp 16 08/25/18 08:00 BP 141/67 08/25/18 08:00 Pulse Ox 100 08/25/18 08:00 Intake & Output 08/24/18 08/25/18 08/25/18 18:59 06:59 18:59 Intake Total 532.058 360 Output Total 400 800 Balance 132.058 -800 360 Weight 53.3 kg Intake: IV 100 Intake, IV Titration 210.058 Amount Heparin Sod,Pork in 0.45% 210.058 NaCl 25,000 unit In 0.45 % NaCl 1 250ml.bag @ 12 UNITS/KG/HR 6.53 mls/hr IV .Q24H [facility] Rx#: [id number] Oral 222 360 Output: Urine 400 800 Other: Voiding Method Toilet Toilet # Voids 1 - Exam PHYSICAL EXAMINATION: GENERAL: 83-year-old female in no acute distress at the time of my examination HEENT: Head is atraumatic, normocephalic. Pupils equal, round. Sclera anicteric. Conjunctiva are clear. Mucous membranes of the mouth are moist. Neck is supple. There is no elevated jugular venous pressure. No carotid bruit is heard. HEART EXAMINATION: Heart S1, S2 normal. No murmur or gallop heard. CHEST EXAMINATION: Lungs are clear to auscultation and precussion. No chest wall tenderness is noted on palpation or with deep breathing. ABDOMEN: Soft, nontender. Bowel sounds are heard. No organomegaly noted. EXTREMITIES: 2+ peripheral pulses with no evidence of peripheral edema and no calf tenderness noted. Right Groin soft, no evidence of any hematoma. NEUROLOGIC patient is awake, alert and oriented X3. . - Labs CBC & Chem 7: 08/25/18 06:07 08/22/18 14:36 Labs: Abnormal Lab Results - Last 24 Hours (Table) 08/25/18 Range/Units 06:07 RBC 2.86 L (3.80-5.40) m/uL MCV 126.6 H (80.0-100.0) fL MCH 41.6 H (25.0-35.0) pg Microbiology - Last 24 Hours (Table) 08/22/18 03:55 Blood Culture - Preliminary Blood No Growth after 72 hours Assessment and Plan Plan: Assessment and plan #1 chest pain with abnormality in troponin, status post cardiac catheterization which revealed patent stents and no obstructive coronary artery disease. #2 hypertension #3 hyperlipidemia #4 history of seizures Plan From cardiology's perspective, patient may be able to be discharged home today. Follow-up appointment in the office post discharge. DNP note has been reviewed, I agree with a documented findings and plan of care. Patient was seen and examined.
== END 2018-08-25 11:58 | disposition home or self-care (01) | DRG 281 ==
LOC: EC 03:30 → 4MS4W 06:08 → 3SCARD 12:23
PROVIDERS: ADMIT Internal Medicine; ATTEND Internal Medicine
PROC: B2111ZZ Fluoroscopy of Multiple Coronary Arteries using Low Osmolar Contrast (ICD-10-PCS; 2018-08-24)
PROC: 4A023N7 Measurement of Cardiac Sampling and Pressure, Left Heart, Percutaneous Approach (ICD-10-PCS; principal; 2018-08-24 08:30)
DX: I21.4 Non-ST elevation (NSTEMI) myocardial infarction (principal); B20 Human immunodeficiency virus [HIV] disease; B37.0 Candidal stomatitis; E87.1 Hypo-osmolality and hyponatremia; G40.909 Epilepsy, unspecified, not intractable, without status epilepticus; T42.76XA Underdosing of unspecified antiepileptic and sedative-hypnotic drugs, initial encounter; Z91.128 Patient's intentional underdosing of medication regimen for other reason; E87.6 Hypokalemia; H66.90 Otitis media, unspecified, unspecified ear; I10 Essential (primary) hypertension; I25.10 Atherosclerotic heart disease of native coronary artery without angina pectoris; I25.2 Old myocardial infarction; R32 Unspecified urinary incontinence; R63.1 Polydipsia; T50.1X5A Adverse effect of loop [high-ceiling] diuretics, initial encounter; Z79.02 Long term (current) use of antithrombotics/antiplatelets; B19.20 Unspecified viral hepatitis C without hepatic coma; E78.5 Hyperlipidemia, unspecified; Z79.82 Long term (current) use of aspirin; Z79.899 Other long term (current) drug therapy; Z88.0 Allergy status to penicillin; Z95.5 Presence of coronary angioplasty implant and graft; Z88.8 Allergy status to other drugs, medicaments and biological substances; R41.0 Disorientation, unspecified
CPT/HCPCS: 36415; 70450; 80048; 80053; 80175; 80203; 81003; 82550; 82553; 83605; 84484; 85025; 85610; 85730; 87040; 87502; 93005; 93306; 93458; 95819; 96361; 96365; 96366; 96375; 96376; 99291